=== PATIENT | female | born 1950 | race Caucasian/White ===

== ENCOUNTER 2019-05-07 21:03 | Inpatient (IN) | payer MEDICARE ==
[~2019-05-07] VITALS: Ht 167.6 cm; Wt 61.9 kg
--- NOTE | 2019-05-07 22:19 | PDOC ---
Exam Note: Harpreet Note: Please also refer to the separate dictated note~for this date of service dictated separately. Discussed the patient with Nursing staff reviewed the chart.~Reviewed interim history and current functioning. Reviewed vital signs,~Labs/ Radiology~and current medications noted below. Continue current treatment with the changes noted in the dictated addendum note Current Medications: I have reviewed the current psychotropics carefully including drug interactions. Risk benefit ratio favors no change other than as noted in my dictated progress note. IAN SANCHEZ MD May 07, 2019 22:19
[2019-05-07 22:40] VITALS: BP 167/82
[2019-05-07] MEDS ORDERED: MAGNESIUM HYDROXIDE 2,400 MG/30 ML ORAL.SUSP. PO PRN (22:45)
[2019-05-07] MEDS ORDERED: MAG HYDROX/AL HYDROX/SIMETH 30 ML ORAL.SUSP PO PRN (22:45)
[2019-05-07] MEDS ORDERED: ACETAMINOPHEN 325 MG TABLET PO PRN (22:45)
[2019-05-07] MEDS ORDERED: METHYL SALICYLATE/MENTHOL TOPICAL OINTMENT 29GM TUBE. TP PRN (22:45)
[2019-05-08 06:18] VITALS: BP 115/65
[2019-05-08 06:56] LABS: BASO % 1 % (0-3); EOS % 0 % (0-3); HEMOGLOBIN 13.9 g/dL (12.0-15.5); LYMPH # 0.9 x10^3/uL (1.0-4.8); LYMPH % 15 % (24-48); MEAN CORPUSCULAR HEMOGLOBIN 31 pg (25-35); MEAN CORPUSCULAR HGB CONC 33 g/dL (31-37); MEAN CORPUSCULAR VOLUME 93 fL (79-100); MONO # 0.7 x10^3/uL (0.0-1.1); MONO % 11 % (0-9); NEUT # 4.6 x10^3uL (1.8-7.7); NEUT % 73 % (31-73); PLATELET COUNT 327 x10^3/uL (140-400); RED BLOOD COUNT 4.52 x10^6/uL (3.50-5.40); RED CELL DISTRIBUTION WIDTH 13.7 % (11.5-14.5); WHITE BLOOD COUNT 6.3 x10^3/uL (4.0-11.0)
[2019-05-08 07:02] LABS: ALBUMIN/GLOBULIN RATIO 1.1 (1.0-1.7); CALCIUM 9.4 mg/dL (8.5-10.1); CREATININE 0.7 mg/dL (0.6-1.0); GFR 83.7; MAGNESIUM 2.4 mg/dL (1.8-2.4); POTASSIUM 3.4 mmol/L (3.5-5.1); TOTAL BILIRUBIN 0.5 mg/dL (0.2-1.0); TOTAL PROTEIN 7.5 g/dL (6.4-8.2)
[2019-05-08] MEDS: CLOBETASOL EMOLLIENT 0.05% TOPICAL CREAM 15GM TUBE. TP SCH ×2 (10:14→20:25)
--- NOTE | 2019-05-08 10:30 | RAD ---
CT HEAD WO CONTRAST History: Change in mental status. Comparison: None. Technique: Noncontrast CT imaging was performed of the head. Exposure: One or more of the following individualized dose reduction techniques were utilized for this examination: 1. Automated exposure control 2. Adjustment of the mA and/or kV according to patient size 3. Use of iterative reconstruction technique. Findings: The inferior aspect of the posterior fossa is not included in the image. No acute infarct. No intracranial hemorrhage. No mass effect. No hydrocephalus. Extra-axial spaces are unremarkable. Imaged orbits are unremarkable. Imaged paranasal sinuses and mastoid air cells are clear. Impression: 1. No acute intracranial abnormality. Electronically signed by: Ian Gardiner DO (05/08/2019 10:27 AM) [facility]
[2019-05-08 13:29] LABS: THYROID STIM HORMONE (TSH) 2.214 uIU/mL (0.358-3.740)
[2019-05-08 16:05] VITALS: BP 147/69
[2019-05-08 19:11] LABS: THYROXINE 6.6 ug/dL (4.5-12.0)
[2019-05-08] MEDS: traZODone 50 MG TABLET. PO SCH (20:22)
[2019-05-08] MEDS ORDERED: traZODone 50 MG TABLET. PO PRN (20:30)
--- NOTE | 2019-05-08 22:06 | PDOC ---
Exam Note: Harpreet Note: Please also refer to the separate dictated note~for this date of service dictated separately.~Patient seen individually. Discussed the patient with Nursing staff reviewed the chart.~Reviewed interim history and current functioning. Reviewed vital signs,~Labs/ Radiology~and current medications noted below. Continue current treatment with the changes noted in the dictated addendum note Assessment: Vital Signs/I&O: Vital Signs Date Time Temp Pulse Resp B/P (MAP) Pulse Ox O2 Delivery O2 Flow Rate FiO2 05/08/19 16:05 97.8 95 20 147/69 (95) 97 05/07/19 22:40 Room Air I & O 05/07/19 05/07/19 05/08/19 14:59 22:59 06:59 Intake Total 0 ml Balance 0 ml Labs: Laboratory Tests Test 05/08/19 06:18 White Blood Count 6.3 x10^3/uL (4.0-11.0) Red Blood Count 4.52 x10^6/uL (3.50-5.40) Hemoglobin 13.9 g/dL (12.0-15.5) Hematocrit 42.0 % (36.0-47.0) Mean Corpuscular Volume 93 fL (79-100) Mean Corpuscular Hemoglobin 31 pg (25-35) Mean Corpuscular Hemoglobin Concent 33 g/dL (31-37) Red Cell Distribution Width 13.7 % (11.5-14.5) Platelet Count 327 x10^3/uL (140-400) Neutrophils (%) (Auto) 73 % (31-73) Lymphocytes (%) (Auto) 15 % (24-48) L Monocytes (%) (Auto) 11 % (0-9) H Eosinophils (%) (Auto) 0 % (0-3) Basophils (%) (Auto) 1 % (0-3) Neutrophils # (Auto) 4.6 x10^3uL (1.8-7.7) Lymphocytes # (Auto) 0.9 x10^3/uL (1.0-4.8) L Monocytes # (Auto) 0.7 x10^3/uL (0.0-1.1) Eosinophils # (Auto) 0.0 x10^3/uL (0.0-0.7) Basophils # (Auto) 0.0 x10^3/uL (0.0-0.2) Sodium Level 142 mmol/L (136-145) Potassium Level 3.4 mmol/L (3.5-5.1) L Chloride Level 105 mmol/L (98-107) Carbon Dioxide Level 26 mmol/L (21-32) Anion Gap 11 (6-14) Blood Urea Nitrogen 15 mg/dL (7-20) Creatinine 0.7 mg/dL (0.6-1.0) Estimated GFR (Cockcroft-Gault) 83.7 BUN/Creatinine Ratio 21 (6-20) H Glucose Level 106 mg/dL (70-99) H Calcium Level 9.4 mg/dL (8.5-10.1) Magnesium Level 2.4 mg/dL (1.8-2.4) Iron Level 91 ug/dL (50-170) Total Iron Binding Capacity 313 ug/dL (250-450) Iron Saturation 29 % (15-34) Total Bilirubin 0.5 mg/dL (0.2-1.0) Aspartate Amino Transferase (AST) 20 U/L (15-37) Alanine Aminotransferase (ALT) 23 U/L (14-59) Alkaline Phosphatase 59 U/L (46-116) Total Protein 7.5 g/dL (6.4-8.2) Albumin 4.0 g/dL (3.4-5.0) Albumin/Globulin Ratio 1.1 (1.0-1.7) Triglycerides Level 54 mg/dL (0-150) Cholesterol Level 181 mg/dL (0-200) LDL Cholesterol, Calculated 94 mg/dL (0-100) VLDL Cholesterol, Calculated 10 mg/dL (0-40) Non-HDL Cholesterol Calculated 104 mg/dL (0-129) HDL Cholesterol 77 mg/dL (40-60) H Cholesterol/HDL Ratio 2.0 25-Hydroxy Vitamin D Total 75.1 ng/mL (30-100) Thyroid Stimulating Hormone (TSH) 2.214 uIU/mL (0.358-3.740) Thyroxine (T4) 6.6 ug/dL (4.5-12.0) Total Triiodothyronine (TT3) 111 ng/dL (71-180) Treponema pallidum Antibody Nonreactive (Nonreactive) Current Medications: Meds: Current Medications Medications (Trade) Dose Ordered Sig/Ally Route PRN Reason Start Time Stop Time Status Last Admin Dose Admin Clobetasol Propionate 1 chelo BID TP 05/08/19 09:00 05/08/19 20:25 Trazodone HCl (Desyrel) 50 mg QHS PO 05/08/19 21:00 05/08/19 20:22 I have reviewed the current psychotropics carefully including drug interactions. Risk benefit ratio favors no change other than as noted in my dictated progress note. Diagnosis: Problems: (1) Anxiety disorder (2) Bipolar affective, mixed (3) Mild cognitive impairment (4) Obsessive compulsive disorder IAN SANCHEZ MD May 08, 2019 22:06
[2019-05-08 23:11] LABS: HEMOGLOBIN A1C 5.3 % (4.8-5.6)
--- NOTE | 2019-05-09 00:11 | CONS ---
DATE OF CONSULTATION: 05/08/2019 MEDICAL CONSULTATION NOTE ATTENDING PHYSICIAN: Dr. Ventura, Dr. Longoria. We are asked to see this patient for medical consultation. HISTORY OF PRESENT ILLNESS: The patient is age 68. She was sent here by court order from [place], [place]. She was removed from her apartment after an eviction notice. She is very confused, refusing to answer door. She has a couple of brothers, no other family. She has a history of dementia, bipolar disorder and obsessive compulsive disorder. Her main medical issue seems to be psoriasis. She has a significant patches of psoriatic changes in her neck, torso and extensor surfaces. She tells me that she has a wheel setter in [place], but could not give me further details. Unfortunately, she could not provide any further detail. She is pleasant but very demented. PAST MEDICAL HISTORY: Gleaned from the chart is significant for psoriasis. There is no psoriatic arthritis. She has altered mentation and bipolar disorder. She also has underlying schizoaffective disorder. CURRENT MEDICATIONS: She was not taking any psychiatric meds until she got here. She had been on various [id number] meds. ALLERGIES: She has no recorded drug allergy. SOCIAL HISTORY: She is a nonsmoker, nondrinker. FAMILY HISTORY: She is very sketchy. Both her parents are . Exact cause of is unknown. She has no family, no children. REVIEW OF SYSTEMS: Unobtainable due to the patient's dementia. PHYSICAL EXAMINATION: GENERAL: When I saw her this is a pleasant but confused female. She is in no acute distress. VITAL SIGNS: Her initial vital signs today showed a blood pressure 167/82, pulse is 22 and regular. She is afebrile. HEENT: Head is without trauma. Pupils are reactive. Sclerae nonicteric. Oropharynx is clear. NECK: Supple. No bruits. LUNGS: Otherwise clear. CARDIOVASCULAR: Showed regular heart tones. No gallops. Peripheral pulses are palpable and full. ABDOMEN: Soft, scaphoid, nontender. No organomegaly. EXTREMITIES: Show 1+ edema, nonpitting. NEUROLOGIC: Neurologic function profoundly confused. She appears a bit manic at this time. SKIN: She has redness, erythema and plaques of psoriasis surrounding her neck, torso, flank and extensor surface. LABORATORY DATA: Reviewed. Her hemoglobin is 13.9 g/dL with a white count of 6300. Electrolytes showed a sodium 142 mEq, potassium 3.4 mEq, creatinine 0.7 mg percent, nonfasting blood sugar 106 mg/dL. ASSESSMENT AND PLAN: 1. This 68-year-old female has significant schizoaffective disorder. She is unable to care for herself. She was sent here to this facility by urgent court order a petition from her most immediate family 2 brothers. 2. Psoriasis. She has been noncompliant with the meds. 3. Profound underlying dementia. RECOMMENDATIONS: 1. I recommended that 0.1% betamethasone cream. This is a class I steroid twice a day to the affected area. 2. Other home meds reviewed. 3. Diet as tolerated. 4. This patient is stable otherwise from a medical standpoint. Thank you again for asking me to see the patient for medical consultation. We shall gladly follow along during the course of her stay. WALTER LONGORIA MD DR: ROD/immanuel JOB#: [id number] / [id number]
[2019-05-09 06:30] VITALS: BP 136/73
[2019-05-09] MEDS: CLOBETASOL EMOLLIENT 0.05% TOPICAL CREAM 15GM TUBE. TP SCH ×2 (08:40→20:38)
[2019-05-09 15:32] VITALS: BP 135/71
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
[2019-05-09] MEDS: traZODone 50 MG TABLET. PO SCH (20:37)
[2019-05-09] MEDS: risperiDONE 0.25 MG TABLET. PO SCH (20:37)
--- NOTE | 2019-05-09 22:09 | PDOC ---
Exam Note: Harpreet Note: Please also refer to the separate dictated note~for this date of service dictated separately.~Patient seen individually. Discussed the patient with Nursing staff reviewed the chart.~Reviewed interim history and current functioning. Reviewed vital signs,~Labs/ Radiology~and current medications noted below. Continue current treatment with the changes noted in the dictated addendum note Assessment: Vital Signs/I&O: Vital Signs Date Time Temp Pulse Resp B/P (MAP) Pulse Ox O2 Delivery O2 Flow Rate FiO2 05/09/19 15:32 98.2 89 18 135/71 (92) 94 05/07/19 22:40 Room Air I & O 05/08/19 05/08/19 05/09/19 14:59 22:59 06:59 Intake Total 600 ml 240 ml 100 ml Balance 600 ml 240 ml 100 ml Current Medications: Meds: Current Medications Medications (Trade) Dose Ordered Sig/Ally Route PRN Reason Start Time Stop Time Status Last Admin Dose Admin Risperidone (RisperDAL) 0.25 mg QHS PO 05/09/19 21:00 05/09/19 20:37 I have reviewed the current psychotropics carefully including drug interactions. Risk benefit ratio favors no change other than as noted in my dictated progress note. Diagnosis: Problems: (1) Anxiety disorder (2) Bipolar affective, mixed (3) Mild cognitive impairment (4) Obsessive compulsive disorder IAN SANCHEZ MD May 09, 2019 22:09
[2019-05-10 06:01] VITALS: BP 108/58
[2019-05-10] MEDS: CLOBETASOL EMOLLIENT 0.05% TOPICAL CREAM 15GM TUBE. TP SCH ×2 (08:04→20:47)
[2019-05-10 16:17] VITALS: BP 113/56
[2019-05-10] MEDS: risperiDONE 0.25 MG TABLET. PO SCH (20:28)
[2019-05-10] MEDS: traZODone 50 MG TABLET. PO SCH (20:28)
--- NOTE | 2019-05-10 22:20 | PDOC ---
Exam Note: Harpreet Note: Please also refer to the separate dictated note~for this date of service dictated separately.~Patient seen individually. Discussed the patient with Nursing staff reviewed the chart.~Reviewed interim history and current functioning. Reviewed vital signs,~Labs/ Radiology~and current medications noted below. Continue current treatment with the changes noted in the dictated addendum note Assessment: Vital Signs/I&O: Vital Signs Date Time Temp Pulse Resp B/P (MAP) Pulse Ox O2 Delivery O2 Flow Rate FiO2 05/10/19 16:17 97.2 86 20 113/56 (75) 98 Room Air I & O 05/09/19 05/09/19 05/10/19 15:00 23:00 07:00 Intake Total 720 ml 240 ml Balance 720 ml 240 ml Current Medications: I have reviewed the current psychotropics carefully including drug interactions. Risk benefit ratio favors no change other than as noted in my dictated progress note. Diagnosis: Problems: (1) Anxiety disorder (2) Bipolar affective, mixed (3) Mild cognitive impairment (4) Obsessive compulsive disorder IAN SANCHEZ MD May 10, 2019 22:20
[2019-05-11 06:07] VITALS: BP 94/61
[2019-05-11] MEDS: CLOBETASOL EMOLLIENT 0.05% TOPICAL CREAM 15GM TUBE. TP SCH ×2 (08:14→19:49)
--- NOTE | 2019-05-11 15:19 | PN ---
DATE: 05/09/2019 This late entry 05/09 covers the elements not covered in my initial note. SUBJECTIVE: I met with the patient at length in her room in evening of 05/09. The patient slept 5-1/2 hours previous night. The patient remains hypomanic, hyperverbal, compliant with medications, constantly moving in and out of the dayroom, somewhat paranoid, dismissive. REVIEW OF SYSTEMS: No CV, , pulmonary, eye, ENT system symptoms on review. MENTAL STATUS EXAM: Oriented to herself and situation. Speech is coherent, rapid at times. Abstraction fair. Computation impaired. Language function intact. Attention span short. Mood and affect labile. Grandiose distracted easily. No suicidal or homicidal ideation. LABORATORY DATA: Reviewed. IMPRESSION: Bipolar 1 disorder, mixed with psychotic features; mild cognitive impairment; anxiety disorder, unspecified. PLAN: Start Risperdal 0.25 mg p.o. at bedtime as an atypical antipsychotic mood stabilizer. Consider Depakote. Gather further historical information. Rest unchanged for now. MAN Isidra SANCHEZ MD DR: LEOBARDO/immanuel JOB#: [id number] / [id number]
[2019-05-11 16:20] VITALS: BP 114/65
[2019-05-11] MEDS: traZODone 50 MG TABLET. PO SCH (19:49)
[2019-05-11] MEDS: risperiDONE 0.5 MG TABLET. PO SCH (19:50)
--- NOTE | 2019-05-11 22:16 | PDOC ---
Exam Note: Harpreet Note: Please also refer to the separate dictated note~for this date of service dictated separately.~Patient seen individually. Discussed the patient with Nursing staff reviewed the chart.~Reviewed interim history and current functioning. Reviewed vital signs,~Labs/ Radiology~and current medications noted below. Continue current treatment with the changes noted in the dictated addendum note Assessment: Vital Signs/I&O: Vital Signs Date Time Temp Pulse Resp B/P (MAP) Pulse Ox O2 Delivery O2 Flow Rate FiO2 05/11/19 16:20 98.0 84 16 114/65 (81) 98 05/11/19 06:07 Room Air I & O 05/10/19 05/10/19 05/11/19 14:59 22:59 06:59 Intake Total 240 ml 240 ml 120 ml Balance 240 ml 240 ml 120 ml Current Medications: Meds: Current Medications Medications (Trade) Dose Ordered Sig/Ally Route PRN Reason Start Time Stop Time Status Last Admin Dose Admin Risperidone (RisperDAL) 0.5 mg QHS PO 05/11/19 21:00 05/11/19 19:50 I have reviewed the current psychotropics carefully including drug interactions. Risk benefit ratio favors no change other than as noted in my dictated progress note. Diagnosis: Problems: (1) Anxiety disorder (2) Bipolar affective, mixed (3) Mild cognitive impairment (4) Obsessive compulsive disorder IAN SANCHEZ MD May 11, 2019 22:16
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
[2019-05-12 06:11] VITALS: BP 100/57
[2019-05-12] MEDS: CLOBETASOL EMOLLIENT 0.05% TOPICAL CREAM 15GM TUBE. TP SCH ×2 (07:38→20:13)
[2019-05-12 15:48] VITALS: BP 135/68
[2019-05-12] MEDS: DIVALPROEX 125 MG CAP.SPRINK PO SCH (18:45)
[2019-05-12] MEDS: traZODone 50 MG TABLET. PO SCH (20:13)
[2019-05-12] MEDS: risperiDONE 0.5 MG TABLET. PO SCH (20:13)
--- NOTE | 2019-05-12 22:51 | PDOC ---
Exam Note: Harpreet Note: Please also refer to the separate dictated note~for this date of service dictated separately.~Patient seen individually. Discussed the patient with Nursing staff reviewed the chart.~Reviewed interim history and current functioning. Reviewed vital signs,~Labs/ Radiology~and current medications noted below. Continue current treatment with the changes noted in the dictated addendum note Assessment: Vital Signs/I&O: Vital Signs Date Time Temp Pulse Resp B/P (MAP) Pulse Ox O2 Delivery O2 Flow Rate FiO2 05/12/19 15:48 97.6 104 16 135/68 (90) 96 05/11/19 06:07 Room Air I & O 05/11/19 05/11/19 05/12/19 15:00 23:00 07:00 Intake Total 480 ml 480 ml Balance 480 ml 480 ml Current Medications: I have reviewed the current psychotropics carefully including drug interactions. Risk benefit ratio favors no change other than as noted in my dictated progress note. Diagnosis: Problems: (1) Anxiety disorder (2) Bipolar affective, mixed (3) Mild cognitive impairment (4) Obsessive compulsive disorder IAN SANCHEZ MD May 12, 2019 22:51
[2019-05-13 06:01] VITALS: BP 121/68
[2019-05-13 06:55] LABS: BILIRUBIN,URINE NEG (NEG); CLARITY,URINE CLOUDY; COLOR,URINE YELLOW; GLUCOSE,URINE NEG (NEG); NITRITE,URINE NEG (NEG); UROBILINOGEN,URINE 0.2 mg/dL (0.2 mg/dL)
[2019-05-13] MEDS: DIVALPROEX 125 MG CAP.SPRINK PO SCH ×2 (07:43→17:06)
[2019-05-13 08:05] LABS: BASO % 1 % (0-3); EOS # 0.1 x10^3/uL (0.0-0.7); EOS % 2 % (0-3); HEMATOCRIT 39.6 % (36.0-47.0); LYMPH # 0.6 x10^3/uL (1.0-4.8); LYMPH % 13 % (24-48); MEAN CORPUSCULAR HEMOGLOBIN 31 pg (25-35); MEAN CORPUSCULAR HGB CONC 33 g/dL (31-37); MEAN CORPUSCULAR VOLUME 93 fL (79-100); MONO # 0.5 x10^3/uL (0.0-1.1); MONO % 11 % (0-9); NEUT # 3.1 x10^3uL (1.8-7.7); NEUT % 73 % (31-73); PLATELET COUNT 309 x10^3/uL (140-400); RED BLOOD COUNT 4.24 x10^6/uL (3.50-5.40); RED CELL DISTRIBUTION WIDTH 13.9 % (11.5-14.5); WHITE BLOOD COUNT 4.2 x10^3/uL (4.0-11.0)
[2019-05-13 08:12] LABS: ALBUMIN 3.6 g/dL (3.4-5.0); ALBUMIN/GLOBULIN RATIO 1.1 (1.0-1.7); CALCIUM 9.2 mg/dL (8.5-10.1); CREATININE 0.6 mg/dL (0.6-1.0); GFR 99.7; POTASSIUM 3.6 mmol/L (3.5-5.1); TOTAL BILIRUBIN 0.3 mg/dL (0.2-1.0); TOTAL PROTEIN 6.8 g/dL (6.4-8.2)
[2019-05-13] MEDS: CLOBETASOL EMOLLIENT 0.05% TOPICAL CREAM 15GM TUBE. TP SCH ×2 (10:49→19:56)
[2019-05-13] MEDS: LACTOBACILLUS RHAMNOSUS GG 1 CAPSULE. PO SCH ×2 (12:07→19:56)
[2019-05-13] MEDS: levoFLOXacin 250 MG TABLET PO SCH (12:07)
[2019-05-13 16:15] VITALS: BP 129/78
[2019-05-13] MEDS: risperiDONE 0.5 MG TABLET. PO SCH (19:56)
[2019-05-13] MEDS: traZODone 50 MG TABLET. PO SCH (19:56)
--- NOTE | 2019-05-13 22:06 | PDOC ---
Exam Note: Harpreet Note: Please also refer to the separate dictated note~for this date of service dictated separately.~Patient seen individually. Discussed the patient with Nursing staff reviewed the chart.~Reviewed interim history and current functioning. Reviewed vital signs,~Labs/ Radiology~and current medications noted below. Continue current treatment with the changes noted in the dictated addendum note Assessment: Vital Signs/I&O: Vital Signs Date Time Temp Pulse Resp B/P (MAP) Pulse Ox O2 Delivery O2 Flow Rate FiO2 05/13/19 16:15 98.2 102 22 129/78 (95) 97 Room Air I & O 05/12/19 05/12/19 05/13/19 15:00 23:00 07:00 Intake Total 660 ml 360 ml Balance 660 ml 360 ml Labs: Laboratory Tests Test 05/13/19 06:15 05/13/19 07:30 Urine Collection Type Unknown Urine Color Yellow Urine Clarity Cloudy Urine pH 8.5 Urine Specific [place] 1.020 Urine Protein Trace (NEG-TRACE) Urine Glucose (UA) Neg mg/dL (NEG) Urine Ketones (Stick) Neg mg/dL (NEG) Urine Blood Neg (NEG) Urine Nitrite Neg (NEG) Urine Bilirubin Neg (NEG) Urine Urobilinogen Dipstick 0.2 mg/dL (0.2 mg/dL) Urine Leukocyte Esterase Trace (NEG) White Blood Count 4.2 x10^3/uL (4.0-11.0) Red Blood Count 4.24 x10^6/uL (3.50-5.40) Hemoglobin 13.0 g/dL (12.0-15.5) Hematocrit 39.6 % (36.0-47.0) Mean Corpuscular Volume 93 fL (79-100) Mean Corpuscular Hemoglobin 31 pg (25-35) Mean Corpuscular Hemoglobin Concent 33 g/dL (31-37) Red Cell Distribution Width 13.9 % (11.5-14.5) Platelet Count 309 x10^3/uL (140-400) Neutrophils (%) (Auto) 73 % (31-73) Lymphocytes (%) (Auto) 13 % (24-48) L Monocytes (%) (Auto) 11 % (0-9) H Eosinophils (%) (Auto) 2 % (0-3) Basophils (%) (Auto) 1 % (0-3) Neutrophils # (Auto) 3.1 x10^3uL (1.8-7.7) Lymphocytes # (Auto) 0.6 x10^3/uL (1.0-4.8) L Monocytes # (Auto) 0.5 x10^3/uL (0.0-1.1) Eosinophils # (Auto) 0.1 x10^3/uL (0.0-0.7) Basophils # (Auto) 0.0 x10^3/uL (0.0-0.2) Sodium Level 142 mmol/L (136-145) Potassium Level 3.6 mmol/L (3.5-5.1) Chloride Level 106 mmol/L (98-107) Carbon Dioxide Level 29 mmol/L (21-32) Anion Gap 7 (6-14) Blood Urea Nitrogen 20 mg/dL (7-20) Creatinine 0.6 mg/dL (0.6-1.0) Estimated GFR (Cockcroft-Gault) 99.7 BUN/Creatinine Ratio 33 (6-20) H Glucose Level 101 mg/dL (70-99) H Calcium Level 9.2 mg/dL (8.5-10.1) Total Bilirubin 0.3 mg/dL (0.2-1.0) Aspartate Amino Transferase (AST) 15 U/L (15-37) Alanine Aminotransferase (ALT) 26 U/L (14-59) Alkaline Phosphatase 58 U/L (46-116) Total Protein 6.8 g/dL (6.4-8.2) Albumin 3.6 g/dL (3.4-5.0) Albumin/Globulin Ratio 1.1 (1.0-1.7) Current Medications: Meds: Current Medications Medications (Trade) Dose Ordered Sig/Ally Route PRN Reason Start Time Stop Time Status Last Admin Dose Admin Levofloxacin (Levaquin) 250 mg DAILY PO 05/13/19 09:00 05/18/19 01:00 05/13/19 12:07 Lactobacillus Rhamnosus (Culturelle) 1 cap BID PO 05/13/19 11:00 05/13/19 19:56 I have reviewed the current psychotropics carefully including drug interactions. Risk benefit ratio favors no change other than as noted in my dictated progress note. Diagnosis: Problems: (1) Anxiety disorder (2) Bipolar affective, mixed (3) Mild cognitive impairment (4) Obsessive compulsive disorder IAN SANCHEZ MD May 13, 2019 22:05
--- NOTE | 2019-05-14 05:14 | PN ---
DATE: 05/11/2019 PSYCHIATRIC PROGRESS NOTE This late entry 05/11/2019 covers elements not covered in my initial note. SUBJECTIVE: I met with the patient in the evening of 05/11/2019. The patient slept 6-1/2 hours previous night. She remains hyperverbal, somewhat grandiose, distractible, at times paranoid. REVIEW OF SYSTEMS: No CV, , pulmonary, eye, ENT system symptoms on review. MENTAL STATUS EXAM: Oriented to herself and situation. Speech is coherent, rapid. Abstraction fair, computation impaired, language function intact, attention span short. Mood and affect somewhat labile and grandiose. LABORATORY DATA: Reviewed. IMPRESSION: Unchanged from initial note. PLAN: Increase Risperdal from 0.25 mg at bedtime to 0.5 mg at bedtime. Rest unchanged for now. MAN Isidra SANCHEZ MD DR: LEOBARDO/immanuel JOB#: [id number] / [id number]
[2019-05-14 05:43] VITALS: BP 132/75
--- NOTE | 2019-05-14 05:51 | PN ---
DATE: 05/12/2019 PSYCHIATRIC PROGRESS NOTE This is a late entry 05/12/2019 covers elements not covered in my initial note. SUBJECTIVE: I met with the patient at length in her room. She slept 5-1/2 hours. She has been manic, euphoric, compliant with medications. She is compliant with psoriasis treatment, wears multiple layers of clothing, part of her socially inappropriate behaviors. She is social with one of the other patients on the unit, remains hyperverbal and manic. REVIEW OF SYSTEMS: No CV, , pulmonary, eye, ENT system symptoms on review. MENTAL STATUS EXAM: Oriented to herself and situation. Speech is coherent, rapid. Abstraction fair, computation impaired, language function intact, attention span short. Mood and affect remain somewhat grandiose, labile. LABORATORY DATA: Reviewed. IMPRESSION: Unchanged from initial note. PLAN: No change from initial note. MAN Isidra SANCHEZ MD DR: LEOBARDO/immanuel JOB#: [id number] / [id number]
[2019-05-14] MEDS: DIVALPROEX 125 MG CAP.SPRINK PO SCH ×2 (08:15→17:08)
[2019-05-14] MEDS: levoFLOXacin 250 MG TABLET PO SCH (08:15)
[2019-05-14] MEDS: LACTOBACILLUS RHAMNOSUS GG 1 CAPSULE. PO SCH ×2 (08:16→19:51)
[2019-05-14] MEDS: CLOBETASOL EMOLLIENT 0.05% TOPICAL CREAM 15GM TUBE. TP SCH ×2 (09:00→20:00)
--- NOTE | 2019-05-14 11:35 | PN ---
DATE: 05/13/2019 This is a late entry 05/13/2019 covers elements not covered in my initial note. SUBJECTIVE: I met with the patient in the evening of 05/13/2019. The patient slept 6-1/4 hours previous night. The patient has been hyperverbal, wearing multiple layers of clothing typical for her, wearing a blanket as a skirt, somewhat socially bizarre. She has been writing excessively with some hypergraphia evident. She remains on Levaquin for possible UTI. REVIEW OF SYSTEMS: No CV, , pulmonary, eye, ENT system symptoms on review. MENTAL STATUS EXAM: Oriented to herself and situation. Speech is coherent, rapid at times. Abstraction fair, computation impaired, language function intact, attention span short. Mood and affect remain somewhat labile. LABORATORY DATA: Reviewed. IMPRESSION: Schizoaffective disorder, bipolar type, mixed with psychotic features; anxiety disorder, unspecified. Rest unchanged. PLAN: Continue current psychotropics. Depakote is being adjusted. She remains on Risperdal and trazodone and treat the UTI as indicated. IAN SANCHEZ MD DR: LEOBARDO/immanuel JOB#: [id number] / [id number]
[2019-05-14 15:39] VITALS: BP 129/71
[2019-05-14] MEDS: risperiDONE 0.5 MG TABLET. PO SCH (19:51)
[2019-05-14] MEDS: traZODone 50 MG TABLET. PO SCH (19:51)
--- NOTE | 2019-05-14 21:05 | PDOC ---
Exam Note: Harpreet Note: Please also refer to the separate dictated note~for this date of service dictated separately.~Patient seen individually. Discussed the patient with Nursing staff reviewed the chart.~Reviewed interim history and current functioning. Reviewed vital signs,~Labs/ Radiology~and current medications noted below. Continue current treatment with the changes noted in the dictated addendum note Assessment: Vital Signs/I&O: Vital Signs Date Time Temp Pulse Resp B/P (MAP) Pulse Ox O2 Delivery O2 Flow Rate FiO2 05/14/19 15:39 97.7 104 16 129/71 (90) 96 05/13/19 16:15 Room Air I & O 05/13/19 05/13/19 05/14/19 15:00 23:00 07:00 Intake Total 480 ml 360 ml Balance 480 ml 360 ml Current Medications: I have reviewed the current psychotropics carefully including drug interactions. Risk benefit ratio favors no change other than as noted in my dictated progress note. Diagnosis: Problems: (1) Anxiety disorder (2) Bipolar affective, mixed (3) Mild cognitive impairment (4) Obsessive compulsive disorder IAN SANCHEZ MD May 14, 2019 21:05
[2019-05-15 05:21] VITALS: BP 115/75
[2019-05-15 07:22] LABS: BASO % 1 % (0-3); EOS # 0.2 x10^3/uL (0.0-0.7); EOS % 4 % (0-3); HEMATOCRIT 37.9 % (36.0-47.0); HEMOGLOBIN 12.6 g/dL (12.0-15.5); LYMPH % 24 % (24-48); MEAN CORPUSCULAR HEMOGLOBIN 31 pg (25-35); MEAN CORPUSCULAR HGB CONC 33 g/dL (31-37); MEAN CORPUSCULAR VOLUME 92 fL (79-100); MONO # 0.5 x10^3/uL (0.0-1.1); MONO % 11 % (0-9); NEUT # 2.4 x10^3uL (1.8-7.7); NEUT % 60 % (31-73); PLATELET COUNT 307 x10^3/uL (140-400)
[2019-05-15 07:35] LABS: ALBUMIN 3.3 g/dL (3.4-5.0); ALK PHOS 57 U/L (46-116); ALT (SGPT) 29 U/L (14-59); ANION GAP 7 (6-14); AST (SGOT) 18 U/L (15-37); BLOOD UREA NITROGEN 19 mg/dL (7-20); BUN/CREATININE RATIO 32 (6-20); CARBON DIOXIDE 30 mmol/L (21-32); CHLORIDE 108 mmol/L (98-107); CREATININE 0.6 mg/dL (0.6-1.0); GFR 99.7; GLUCOSE 94 mg/dL (70-99); POTASSIUM 3.7 mmol/L (3.5-5.1); SODIUM 145 mmol/L (136-145); TOTAL BILIRUBIN 0.4 mg/dL (0.2-1.0); TOTAL PROTEIN 6.6 g/dL (6.4-8.2)
[2019-05-15 07:46] LABS: VAL ACID 19 mcg/mL (50-100)
[2019-05-15] MEDS: levoFLOXacin 250 MG TABLET PO SCH (07:50)
[2019-05-15] MEDS: LACTOBACILLUS RHAMNOSUS GG 1 CAPSULE. PO SCH ×2 (07:50→19:29)
[2019-05-15] MEDS: DIVALPROEX 125 MG CAP.SPRINK PO SCH (07:50)
[2019-05-15] MEDS: CLOBETASOL EMOLLIENT 0.05% TOPICAL CREAM 15GM TUBE. TP SCH ×2 (07:53→19:29)
--- NOTE | 2019-05-15 09:36 | PN ---
DATE: 05/14/2019 PSYCHIATRIC PROGRESS NOTE This late entry, 05/14/2019, covers elements not covered in my initial note. SUBJECTIVE: I met with the patient in the evening of 05/14/2019. The patient slept 5-3/4 hours previous night. She remains hyperverbal, somewhat manic and grandiose, wears multiple layers of clothing, somewhat inappropriate to the temperature. UA is negative. Compliant with medications. REVIEW OF SYSTEMS: No CV, , pulmonary, eye, ENT system symptoms on review. MENTAL STATUS EXAM: Oriented to herself and situation. Speech is coherent, rapid at times. Abstraction fair, computation impaired, language function intact, attention span short. Mood and affect remain somewhat grandiose, labile and she is quite distractable. LABORATORY DATA: Reviewed. IMPRESSION: Bipolar 1 disorder, mixed with psychotic features versus schizoaffective disorder, bipolar type, mixed with psychotic features. Rest unchanged including mild cognitive impairment. PLAN: Continue current psychotropics. UTI was treated and Levaquin discontinued. Urine culture is negative. Rest unchanged from initial note. MAN Isidra SANCHEZ MD DR: LEOBARDO/immanuel JOB#: [id number] / [id number]
[2019-05-15 16:16] VITALS: BP 130/91
[2019-05-15] MEDS ORDERED: DIVALPROEX 125 MG CAP.SPRINK PO ONE (17:15)
[2019-05-15] MEDS: risperiDONE 0.5 MG TABLET. PO SCH (19:29)
[2019-05-15] MEDS: traZODone 50 MG TABLET. PO SCH (19:29)
--- NOTE | 2019-05-15 22:12 | PDOC ---
Exam Note: Harpreet Note: Please also refer to the separate dictated note~for this date of service dictated separately.~Patient seen individually. Discussed the patient with Nursing staff reviewed the chart.~Reviewed interim history and current functioning. Reviewed vital signs,~Labs/ Radiology~and current medications noted below. Continue current treatment with the changes noted in the dictated addendum note Assessment: Vital Signs/I&O: Vital Signs Date Time Temp Pulse Resp B/P (MAP) Pulse Ox O2 Delivery O2 Flow Rate FiO2 05/15/19 16:16 97.5 98 20 130/91 (104) 95 05/15/19 05:21 Room Air I & O 05/14/19 05/14/19 05/15/19 14:59 22:59 06:59 Intake Total 720 ml 300 ml Balance 720 ml 300 ml Labs: Laboratory Tests Test 05/15/19 06:48 White Blood Count 4.0 x10^3/uL (4.0-11.0) Red Blood Count 4.10 x10^6/uL (3.50-5.40) Hemoglobin 12.6 g/dL (12.0-15.5) Hematocrit 37.9 % (36.0-47.0) Mean Corpuscular Volume 92 fL (79-100) Mean Corpuscular Hemoglobin 31 pg (25-35) Mean Corpuscular Hemoglobin Concent 33 g/dL (31-37) Red Cell Distribution Width 14.0 % (11.5-14.5) Platelet Count 307 x10^3/uL (140-400) Neutrophils (%) (Auto) 60 % (31-73) Lymphocytes (%) (Auto) 24 % (24-48) Monocytes (%) (Auto) 11 % (0-9) H Eosinophils (%) (Auto) 4 % (0-3) H Basophils (%) (Auto) 1 % (0-3) Neutrophils # (Auto) 2.4 x10^3uL (1.8-7.7) Lymphocytes # (Auto) 1.0 x10^3/uL (1.0-4.8) Monocytes # (Auto) 0.5 x10^3/uL (0.0-1.1) Eosinophils # (Auto) 0.2 x10^3/uL (0.0-0.7) Basophils # (Auto) 0.0 x10^3/uL (0.0-0.2) Sodium Level 145 mmol/L (136-145) Potassium Level 3.7 mmol/L (3.5-5.1) Chloride Level 108 mmol/L (98-107) H Carbon Dioxide Level 30 mmol/L (21-32) Anion Gap 7 (6-14) Blood Urea Nitrogen 19 mg/dL (7-20) Creatinine 0.6 mg/dL (0.6-1.0) Estimated GFR (Cockcroft-Gault) 99.7 BUN/Creatinine Ratio 32 (6-20) H Glucose Level 94 mg/dL (70-99) Calcium Level 9.0 mg/dL (8.5-10.1) Total Bilirubin 0.4 mg/dL (0.2-1.0) Aspartate Amino Transferase (AST) 18 U/L (15-37) Alanine Aminotransferase (ALT) 29 U/L (14-59) Alkaline Phosphatase 57 U/L (46-116) Total Protein 6.6 g/dL (6.4-8.2) Albumin 3.3 g/dL (3.4-5.0) L Albumin/Globulin Ratio 1.0 (1.0-1.7) Valproic Acid Level 19 mcg/mL (50-100) L Valproic Acid Last Dose Date 05/14/19 Valproic Acid Last Dose Time 1700 Current Medications: Meds: Current Medications Medications (Trade) Dose Ordered Sig/Ally Route PRN Reason Start Time Stop Time Status Last Admin Dose Admin Divalproex Sodium (Depakote Sprinkles) 125 mg ONCE ONCE PO 05/15/19 17:15 05/15/19 17:16 DC 05/15/19 17:24 I have reviewed the current psychotropics carefully including drug interactions. Risk benefit ratio favors no change other than as noted in my dictated progress note. Diagnosis: Problems: (1) Anxiety disorder (2) Bipolar affective, mixed (3) Mild cognitive impairment (4) Obsessive compulsive disorder IAN SANCHEZ MD May 15, 2019 22:12
[2019-05-16 05:49] VITALS: BP 121/78
[2019-05-16] MEDS: LACTOBACILLUS RHAMNOSUS GG 1 CAPSULE. PO SCH ×2 (08:14→20:29)
[2019-05-16] MEDS: CLOBETASOL EMOLLIENT 0.05% TOPICAL CREAM 15GM TUBE. TP SCH ×2 (08:14→23:43)
[2019-05-16] MEDS: levoFLOXacin 250 MG TABLET PO SCH (08:14)
[2019-05-16] MEDS: DIVALPROEX 125 MG CAP.SPRINK PO SCH ×2 (08:17→15:49)
[2019-05-16 15:55] VITALS: BP 109/61
[2019-05-16] MEDS: traZODone 50 MG TABLET. PO SCH (20:29)
[2019-05-16] MEDS: risperiDONE 0.5 MG TABLET. PO SCH (20:29)
[2019-05-16] MEDS ORDERED: AMOXICILLIN 250 MG CAPSULE PO SCH (21:00)
--- NOTE | 2019-05-16 22:23 | PDOC ---
Exam Note: Harpreet Note: Please also refer to the separate dictated note~for this date of service dictated separately.~Patient seen individually. Discussed the patient with Nursing staff reviewed the chart.~Reviewed interim history and current functioning. Reviewed vital signs,~Labs/ Radiology~and current medications noted below. Continue current treatment with the changes noted in the dictated addendum note Assessment: Vital Signs/I&O: Vital Signs Date Time Temp Pulse Resp B/P (MAP) Pulse Ox O2 Delivery O2 Flow Rate FiO2 05/16/19 15:55 97.3 100 20 109/61 (77) 97 05/15/19 05:21 Room Air I & O 05/15/19 05/15/19 05/16/19 14:59 22:59 06:59 Intake Total 960 ml 730 ml Balance 960 ml 730 ml Current Medications: Meds: Current Medications Medications (Trade) Dose Ordered Sig/Ally Route PRN Reason Start Time Stop Time Status Last Admin Dose Admin Divalproex Sodium (Depakote Sprinkles) 250 mg BID@0900,1700 PO 05/16/19 09:00 05/16/19 15:49 Amoxicillin (Amoxil) 500 mg [id number] PO 05/16/19 21:00 05/23/19 20:59 05/16/19 21:26 I have reviewed the current psychotropics carefully including drug interactions. Risk benefit ratio favors no change other than as noted in my dictated progress note. Diagnosis: Problems: (1) Anxiety disorder (2) Bipolar affective, mixed (3) Mild cognitive impairment (4) Obsessive compulsive disorder IAN SANCHEZ MD May 16, 2019 22:23
--- NOTE | 2019-05-16 23:09 | PN ---
DATE: 05/15/2019 PSYCHIATRIC PROGRESS NOTE This is a late entry 05/15/2019 covers elements not covered in my initial note. SUBJECTIVE: I met with the patient evening of 05/15/2019. The patient slept 8 hours previous night. Overall, she is doing better, less anxious, less labile, compliant with her medication. She remains hypomanic and hyperverbal. Valproic acid level is 19 on Depakote Sprinkles 125 mg twice a day. I met with the patient at some length individually in her room. REVIEW OF SYSTEMS: No CV, , pulmonary, eye, ENT system symptoms on review. MENTAL STATUS EXAM: Oriented to herself and situation. Speech coherent, rapid. Abstraction fair, computation impaired, language function intact, attention span short. Mood and affect remains somewhat hypomanic, grandiose at times. LABORATORY DATA: Reviewed. IMPRESSION: Bipolar 1 disorder, mixed with psychotic features; personality disorder, unspecified; anxiety disorder, unspecified; mild cognitive impairment. PLAN: Increase Depakote Sprinkles to 50 mg twice a day. Check CBC, CMP, valproic acid level in 3 days. Rest unchanged for now. MAN Isidra SANCHEZ MD DR: LEOBARDO/immanuel JOB#: [id number] / [id number]
[2019-05-17 06:35] VITALS: BP 133/72
[2019-05-17] MEDS: DIVALPROEX 125 MG CAP.SPRINK PO SCH ×2 (08:02→17:16)
[2019-05-17] MEDS: LACTOBACILLUS RHAMNOSUS GG 1 CAPSULE. PO SCH ×2 (08:02→20:11)
[2019-05-17] MEDS: levoFLOXacin 250 MG TABLET PO SCH (08:02)
[2019-05-17] MEDS: CLOBETASOL EMOLLIENT 0.05% TOPICAL CREAM 15GM TUBE. TP SCH ×2 (08:03→20:11)
[2019-05-17 16:35] VITALS: BP 112/64
[2019-05-17] MEDS: traZODone 50 MG TABLET. PO SCH (20:11)
[2019-05-17] MEDS: risperiDONE 0.5 MG TABLET. PO SCH (20:11)
--- NOTE | 2019-05-17 22:39 | PDOC ---
Exam Note: Harpreet Note: Please also refer to the separate dictated note~for this date of service dictated separately.~Patient seen individually. Discussed the patient with Nursing staff reviewed the chart.~Reviewed interim history and current functioning. Reviewed vital signs,~Labs/ Radiology~and current medications noted below. Continue current treatment with the changes noted in the dictated addendum note Assessment: Vital Signs/I&O: Vital Signs Date Time Temp Pulse Resp B/P (MAP) Pulse Ox O2 Delivery O2 Flow Rate FiO2 05/17/19 16:35 97.8 96 20 112/64 (80) 97 Room Air I & O 05/16/19 05/16/19 05/17/19 14:59 22:59 06:59 Intake Total 600 ml 240 ml Balance 600 ml 240 ml Current Medications: I have reviewed the current psychotropics carefully including drug interactions. Risk benefit ratio favors no change other than as noted in my dictated progress note. Diagnosis: Problems: (1) Anxiety disorder (2) Bipolar affective, mixed (3) Mild cognitive impairment (4) Obsessive compulsive disorder IAN SANCHZE MD May 17, 2019 22:39
--- NOTE | 2019-05-18 00:09 | PN ---
DATE: 05/16/2019 PSYCHIATRIC PROGRESS NOTE This late entry 05/16/2019 covers elements not covered in my initial note. SUBJECTIVE: I met with the patient in the evening of 05/16/2019. The patient slept 6-3/4 hours previous night. She remains somewhat hyperverbal with poor social skills, mood lability, anxious, dresses herself in multiple layers. REVIEW OF SYSTEMS: No CV, , pulmonary, eye, ENT system symptoms on review. Reliability varies. I met with her in her room. MENTAL STATUS EXAM: Oriented to herself and situation. Speech is coherent, rapid. Abstraction fair, computation impaired, language function intact, attention span short. Mood and affect remain somewhat anxious, labile. LABORATORY DATA: Reviewed. IMPRESSION: Unchanged from initial note. PLAN: No change from initial note. We will adjust the Depakote gradually to reach therapeutic level. Next set of labs to be done on 05/18/2019. Rest unchanged. IAN SANCHEZ MD DR: LEOBARDO/immanuel JOB#: [id number] / [id number]
[2019-05-18 06:25] VITALS: BP 142/73
[2019-05-18 07:34] LABS: BASO % 1 % (0-3); EOS % 1 % (0-3); HEMATOCRIT 38.7 % (36.0-47.0); HEMOGLOBIN 12.8 g/dL (12.0-15.5); LYMPH # 0.8 x10^3/uL (1.0-4.8); LYMPH % 24 % (24-48); MEAN CORPUSCULAR HEMOGLOBIN 31 pg (25-35); MEAN CORPUSCULAR HGB CONC 33 g/dL (31-37); MEAN CORPUSCULAR VOLUME 93 fL (79-100); MONO # 0.4 x10^3/uL (0.0-1.1); MONO % 12 % (0-9); NEUT # 2.1 x10^3uL (1.8-7.7); NEUT % 62 % (31-73); PLATELET COUNT 297 x10^3/uL (140-400); RED BLOOD COUNT 4.14 x10^6/uL (3.50-5.40); RED CELL DISTRIBUTION WIDTH 14.4 % (11.5-14.5); WHITE BLOOD COUNT 3.4 x10^3/uL (4.0-11.0)
[2019-05-18 07:44] LABS: ALBUMIN 3.3 g/dL (3.4-5.0); ALK PHOS 53 U/L (46-116); ALT (SGPT) 28 U/L (14-59); ANION GAP 8 (6-14); AST (SGOT) 15 U/L (15-37); BLOOD UREA NITROGEN 22 mg/dL (7-20); BUN/CREATININE RATIO 37 (6-20); CALCIUM 8.9 mg/dL (8.5-10.1); CARBON DIOXIDE 29 mmol/L (21-32); CHLORIDE 106 mmol/L (98-107); CREATININE 0.6 mg/dL (0.6-1.0); GFR 99.7; GLUCOSE 95 mg/dL (70-99); POTASSIUM 3.8 mmol/L (3.5-5.1); SODIUM 143 mmol/L (136-145); TOTAL BILIRUBIN 0.3 mg/dL (0.2-1.0); TOTAL PROTEIN 6.7 g/dL (6.4-8.2)
[2019-05-18 07:46] LABS: VAL ACID 33 mcg/mL (50-100)
[2019-05-18] MEDS: DIVALPROEX 125 MG CAP.SPRINK PO SCH (08:23)
[2019-05-18] MEDS: LACTOBACILLUS RHAMNOSUS GG 1 CAPSULE. PO SCH ×2 (08:23→20:00)
[2019-05-18] MEDS: CLOBETASOL EMOLLIENT 0.05% TOPICAL CREAM 15GM TUBE. TP SCH ×2 (08:24→20:00)
[2019-05-18 15:56] VITALS: BP 148/79
[2019-05-18] MEDS: risperiDONE 0.5 MG TABLET. PO SCH (19:59)
[2019-05-18] MEDS: traZODone 50 MG TABLET. PO SCH (19:59)
--- NOTE | 2019-05-18 20:47 | PN ---
DATE: 05/17/2019 PSYCHIATRIC PROGRESS NOTE This is a late entry 05/17/2019, covers the elements not covered in my initial note. SUBJECTIVE: I met with the patient in the evening of 05/17/2019 and staffed a treatment team meeting with the entire team in the morning. The patient is sleeping average 6 hours, appetite 75-100% of her meals. She remains hyperverbal, has flight of ideas, rambling in her speech, but social with others. She does not attend very many groups, but when she does, she is hyper-christianity, talking about her [employer] mary. Reportedly, a guardianship hearing is being scheduled and Dr. House has done neuropsychological testing/capacity to make decisions assessment. REVIEW OF SYSTEMS: No CV, , pulmonary, eye, ENT system symptoms on review. Reliability varies. MENTAL STATUS EXAM: Oriented to herself and situation. Speech coherent, rapid at times. Abstraction fair, computation impaired, language function intact, attention span short. Mood and affect remain somewhat grandiose, labile at times. LABORATORY DATA: Reviewed. IMPRESSION: Unchanged from initial note. PLAN: No change from initial note. Maintain Risperdal at current dosage. Depakote was increased. Repeat labs and valproic acid level are due on the 05/18/2019. We will adjust further thereafter. IAN SANCHEZ MD DR: LEOBARDO/immanuel JOB#: [id number] / [id number]
--- NOTE | 2019-05-18 22:08 | PDOC ---
Exam Note: Harpreet Note: Please also refer to the separate dictated note~for this date of service dictated separately.~Patient seen individually. Discussed the patient with Nursing staff reviewed the chart.~Reviewed interim history and current functioning. Reviewed vital signs,~Labs/ Radiology~and current medications noted below. Continue current treatment with the changes noted in the dictated addendum note Assessment: Vital Signs/I&O: Vital Signs Date Time Temp Pulse Resp B/P (MAP) Pulse Ox O2 Delivery O2 Flow Rate FiO2 05/18/19 15:56 98.4 102 22 148/79 (102) 96 Room Air I & O 05/17/19 05/17/19 05/18/19 15:00 23:00 07:00 Intake Total 480 ml 480 ml Balance 480 ml 480 ml Labs: Laboratory Tests Test 05/18/19 07:08 White Blood Count 3.4 x10^3/uL (4.0-11.0) L Red Blood Count 4.14 x10^6/uL (3.50-5.40) Hemoglobin 12.8 g/dL (12.0-15.5) Hematocrit 38.7 % (36.0-47.0) Mean Corpuscular Volume 93 fL (79-100) Mean Corpuscular Hemoglobin 31 pg (25-35) Mean Corpuscular Hemoglobin Concent 33 g/dL (31-37) Red Cell Distribution Width 14.4 % (11.5-14.5) Platelet Count 297 x10^3/uL (140-400) Neutrophils (%) (Auto) 62 % (31-73) Lymphocytes (%) (Auto) 24 % (24-48) Monocytes (%) (Auto) 12 % (0-9) H Eosinophils (%) (Auto) 1 % (0-3) Basophils (%) (Auto) 1 % (0-3) Neutrophils # (Auto) 2.1 x10^3uL (1.8-7.7) Lymphocytes # (Auto) 0.8 x10^3/uL (1.0-4.8) L Monocytes # (Auto) 0.4 x10^3/uL (0.0-1.1) Eosinophils # (Auto) 0.0 x10^3/uL (0.0-0.7) Basophils # (Auto) 0.0 x10^3/uL (0.0-0.2) Sodium Level 143 mmol/L (136-145) Potassium Level 3.8 mmol/L (3.5-5.1) Chloride Level 106 mmol/L (98-107) Carbon Dioxide Level 29 mmol/L (21-32) Anion Gap 8 (6-14) Blood Urea Nitrogen 22 mg/dL (7-20) H Creatinine 0.6 mg/dL (0.6-1.0) Estimated GFR (Cockcroft-Gault) 99.7 BUN/Creatinine Ratio 37 (6-20) H Glucose Level 95 mg/dL (70-99) Calcium Level 8.9 mg/dL (8.5-10.1) Total Bilirubin 0.3 mg/dL (0.2-1.0) Aspartate Amino Transferase (AST) 15 U/L (15-37) Alanine Aminotransferase (ALT) 28 U/L (14-59) Alkaline Phosphatase 53 U/L (46-116) Total Protein 6.7 g/dL (6.4-8.2) Albumin 3.3 g/dL (3.4-5.0) L Albumin/Globulin Ratio 1.0 (1.0-1.7) Valproic Acid Level 33 mcg/mL (50-100) L Valproic Acid Last Dose Date 05/17/19 Valproic Acid Last Dose Time 1700 Current Medications: I have reviewed the current psychotropics carefully including drug interactions. Risk benefit ratio favors no change other than as noted in my dictated progress note. Diagnosis: Problems: (1) Anxiety disorder (2) Bipolar affective, mixed (3) Mild cognitive impairment (4) Obsessive compulsive disorder IAN SANCHEZ MD May 18, 2019 22:08
[2019-05-19 05:27] VITALS: BP 129/70
[2019-05-19] MEDS: CLOBETASOL EMOLLIENT 0.05% TOPICAL CREAM 15GM TUBE. TP SCH ×2 (08:15→19:35)
[2019-05-19] MEDS: LACTOBACILLUS RHAMNOSUS GG 1 CAPSULE. PO SCH ×2 (08:15→19:39)
[2019-05-19] MEDS: DIVALPROEX 125 MG CAP.SPRINK PO SCH ×2 (08:17→16:19)
[2019-05-19 15:34] VITALS: BP 121/77
[2019-05-19] MEDS: traZODone 50 MG TABLET. PO SCH (19:39)
[2019-05-19] MEDS: risperiDONE 0.5 MG TABLET. PO SCH (19:39)
--- NOTE | 2019-05-19 23:06 | PDOC ---
Exam Note: Harpreet Note: Please also refer to the separate dictated note~for this date of service dictated separately.~Patient seen individually. Discussed the patient with Nursing staff reviewed the chart.~Reviewed interim history and current functioning. Reviewed vital signs,~Labs/ Radiology~and current medications noted below. Continue current treatment with the changes noted in the dictated addendum note Assessment: Vital Signs/I&O: Vital Signs Date Time Temp Pulse Resp B/P (MAP) Pulse Ox O2 Delivery O2 Flow Rate FiO2 05/19/19 15:34 98.3 102 20 121/77 (92) 92 05/19/19 05:27 Room Air I & O 05/18/19 05/18/19 05/19/19 15:00 23:00 07:00 Intake Total 600 ml 360 ml 240 ml Balance 600 ml 360 ml 240 ml Current Medications: Meds: Current Medications Medications (Trade) Dose Ordered Sig/Ally Route PRN Reason Start Time Stop Time Status Last Admin Dose Admin Divalproex Sodium (Depakote Sprinkles) 375 mg BID@0900,1700 PO 05/19/19 09:00 05/19/19 16:19 I have reviewed the current psychotropics carefully including drug interactions. Risk benefit ratio favors no change other than as noted in my dictated progress note. Diagnosis: Problems: (1) Anxiety disorder (2) Bipolar affective, mixed (3) Mild cognitive impairment (4) Obsessive compulsive disorder IAN SANCHEZ MD May 19, 2019 23:06
[2019-05-20 06:18] VITALS: BP 126/62
[2019-05-20] MEDS: LACTOBACILLUS RHAMNOSUS GG 1 CAPSULE. PO SCH ×2 (08:06→20:12)
[2019-05-20] MEDS: DIVALPROEX 125 MG CAP.SPRINK PO SCH ×2 (08:06→16:07)
[2019-05-20] MEDS: CLOBETASOL EMOLLIENT 0.05% TOPICAL CREAM 15GM TUBE. TP SCH ×2 (08:07→20:13)
[2019-05-20 16:15] VITALS: BP 126/74
[2019-05-20] MEDS: traZODone 50 MG TABLET. PO SCH (20:12)
[2019-05-20] MEDS: risperiDONE 0.5 MG TABLET. PO SCH (20:12)
--- NOTE | 2019-05-20 21:41 | PDOC ---
Exam Note: Harpreet Note: Please also refer to the separate dictated note~for this date of service dictated separately.~Patient seen individually. Discussed the patient with Nursing staff reviewed the chart.~Reviewed interim history and current functioning. Reviewed vital signs,~Labs/ Radiology~and current medications noted below. Continue current treatment with the changes noted in the dictated addendum note Assessment: Vital Signs/I&O: Vital Signs Date Time Temp Pulse Resp B/P (MAP) Pulse Ox O2 Delivery O2 Flow Rate FiO2 05/20/19 16:15 97.5 103 20 126/74 (91) 95 05/20/19 06:18 Room Air I & O 05/19/19 05/19/19 05/20/19 15:00 23:00 07:00 Intake Total 480 ml 240 ml Balance 480 ml 240 ml Current Medications: I have reviewed the current psychotropics carefully including drug interactions. Risk benefit ratio favors no change other than as noted in my dictated progress note. Diagnosis: Problems: (1) Anxiety disorder (2) Bipolar affective, mixed (3) Mild cognitive impairment (4) Obsessive compulsive disorder IAN SANCHEZ MD May 20, 2019 21:41
--- NOTE | 2019-05-20 21:56 | PN ---
DATE: 05/18/2019 This late entry covers the elements not covered in my initial note. SUBJECTIVE: I met with the patient in the evening of 05/18/2019. The patient slept 6 hours previous night. She remains hyperverbal and still isolates in her room, preoccupied with reading the Bible and writing profusely. She keeps herself wrapped in multiple layers of blankets. Valproic acid level 35 on Depakote Sprinkles 250 b.i.d. We will increase to 375 b.i.d. Check CBC, CMP, valproic acid level in 3 days. REVIEW OF SYSTEMS: No CV, , pulmonary, eye, ENT system symptoms on review. Reliability varies. MENTAL STATUS EXAM: Oriented to herself and situation. Insight, judgment, recent memory is impaired, remote is better. Language function intact. Attention span short. Mood and affect still remains somewhat grandiose, labile at times. LABORATORY DATA: Reviewed. IMPRESSION: Unchanged from initial note. Bipolar 1 disorder, mixed with psychotic features versus schizoaffective disorder, bipolar type. Rest unchanged. PLAN: No change from initial note other than what is noted above. She is having a guardianship hearing. Dr. House has completed psychological testing for capacity to make decisions and I have reviewed this. IAN SANCHEZ MD DR: LEOBARDO/immanuel JOB#: [id number] / [id number]
--- NOTE | 2019-05-20 21:59 | PN ---
DATE: 05/19/2019 PSYCHIATRIC PROGRESS NOTE This is a late entry 05/19/2019 covers elements not covered in my initial note. SUBJECTIVE: I met with the patient in the evening. The patient slept 7-1/2 hours previous night. Her brother and [id number] visited and she talked at length about this. Labs are to be reviewed and repeated on the for her valproic acid. No CV, , pulmonary, eye, ENT system symptoms on review. Reliability varies. She wrapped herself in multiple layers of clothing, somewhat confused, distractible, hyperverbal. MENTAL STATUS EXAM: Oriented to herself, situation. Speech coherent, rapid at times. Abstraction fair, computation impaired, language function intact, attention span short. Mood and affect remain somewhat grandiose. LABORATORY DATA: Reviewed. IMPRESSION: Unchanged from initial note. PLAN: No change from initial note. MAN Isidra SANCHEZ MD DR: LEOBARDO/immanuel JOB#: [id number] / [id number]
[2019-05-21 06:49] VITALS: BP 120/69
[2019-05-21 07:20] LABS: BASO % 1 % (0-3); EOS # 0.1 x10^3/uL (0.0-0.7); EOS % 2 % (0-3); HEMATOCRIT 39.6 % (36.0-47.0); HEMOGLOBIN 13.1 g/dL (12.0-15.5); LYMPH % 30 % (24-48); MEAN CORPUSCULAR HEMOGLOBIN 31 pg (25-35); MEAN CORPUSCULAR HGB CONC 33 g/dL (31-37); MEAN CORPUSCULAR VOLUME 92 fL (79-100); MONO # 0.5 x10^3/uL (0.0-1.1); MONO % 14 % (0-9); NEUT # 1.8 x10^3uL (1.8-7.7); NEUT % 54 % (31-73); PLATELET COUNT 301 x10^3/uL (140-400); RED BLOOD COUNT 4.29 x10^6/uL (3.50-5.40); RED CELL DISTRIBUTION WIDTH 13.8 % (11.5-14.5); WHITE BLOOD COUNT 3.3 x10^3/uL (4.0-11.0)
[2019-05-21 07:36] LABS: ALBUMIN 3.3 g/dL (3.4-5.0); ALK PHOS 53 U/L (46-116); ALT (SGPT) 25 U/L (14-59); ANION GAP 9 (6-14); AST (SGOT) 13 U/L (15-37); BLOOD UREA NITROGEN 20 mg/dL (7-20); BUN/CREATININE RATIO 33 (6-20); CALCIUM 8.9 mg/dL (8.5-10.1); CARBON DIOXIDE 29 mmol/L (21-32); CHLORIDE 105 mmol/L (98-107); CREATININE 0.6 mg/dL (0.6-1.0); GFR 99.7; GLUCOSE 97 mg/dL (70-99); POTASSIUM 3.7 mmol/L (3.5-5.1); SODIUM 143 mmol/L (136-145); TOTAL BILIRUBIN 0.4 mg/dL (0.2-1.0); TOTAL PROTEIN 6.7 g/dL (6.4-8.2)
[2019-05-21 07:39] LABS: VAL ACID 51 mcg/mL (50-100)
[2019-05-21] MEDS: LACTOBACILLUS RHAMNOSUS GG 1 CAPSULE. PO SCH ×2 (08:09→19:58)
[2019-05-21] MEDS: DIVALPROEX 125 MG CAP.SPRINK PO SCH ×2 (08:10→16:44)
[2019-05-21] MEDS: CLOBETASOL EMOLLIENT 0.05% TOPICAL CREAM 15GM TUBE. TP SCH ×2 (09:34→19:58)
[2019-05-21 16:18] VITALS: BP 118/73
[2019-05-21] MEDS: risperiDONE 0.5 MG TABLET. PO SCH (19:58)
[2019-05-21] MEDS: traZODone 50 MG TABLET. PO SCH (19:58)
--- NOTE | 2019-05-21 22:31 | PDOC ---
Exam Note: Harpreet Note: Please also refer to the separate dictated note~for this date of service dictated separately.~Patient seen individually. Discussed the patient with Nursing staff reviewed the chart.~Reviewed interim history and current functioning. Reviewed vital signs,~Labs/ Radiology~and current medications noted below. Continue current treatment with the changes noted in the dictated addendum note Assessment: Vital Signs/I&O: Vital Signs Date Time Temp Pulse Resp B/P (MAP) Pulse Ox O2 Delivery O2 Flow Rate FiO2 05/21/19 16:18 98.0 99 18 118/73 (88) 97 05/20/19 06:18 Room Air I & O 05/20/19 05/20/19 05/21/19 14:59 22:59 06:59 Intake Total 720 ml 240 ml 0 ml Balance 720 ml 240 ml 0 ml Labs: Laboratory Tests Test 05/21/19 06:41 White Blood Count 3.3 x10^3/uL (4.0-11.0) L Red Blood Count 4.29 x10^6/uL (3.50-5.40) Hemoglobin 13.1 g/dL (12.0-15.5) Hematocrit 39.6 % (36.0-47.0) Mean Corpuscular Volume 92 fL (79-100) Mean Corpuscular Hemoglobin 31 pg (25-35) Mean Corpuscular Hemoglobin Concent 33 g/dL (31-37) Red Cell Distribution Width 13.8 % (11.5-14.5) Platelet Count 301 x10^3/uL (140-400) Neutrophils (%) (Auto) 54 % (31-73) Lymphocytes (%) (Auto) 30 % (24-48) Monocytes (%) (Auto) 14 % (0-9) H Eosinophils (%) (Auto) 2 % (0-3) Basophils (%) (Auto) 1 % (0-3) Neutrophils # (Auto) 1.8 x10^3uL (1.8-7.7) Lymphocytes # (Auto) 1.0 x10^3/uL (1.0-4.8) Monocytes # (Auto) 0.5 x10^3/uL (0.0-1.1) Eosinophils # (Auto) 0.1 x10^3/uL (0.0-0.7) Basophils # (Auto) 0.0 x10^3/uL (0.0-0.2) Sodium Level 143 mmol/L (136-145) Potassium Level 3.7 mmol/L (3.5-5.1) Chloride Level 105 mmol/L (98-107) Carbon Dioxide Level 29 mmol/L (21-32) Anion Gap 9 (6-14) Blood Urea Nitrogen 20 mg/dL (7-20) Creatinine 0.6 mg/dL (0.6-1.0) Estimated GFR (Cockcroft-Gault) 99.7 BUN/Creatinine Ratio 33 (6-20) H Glucose Level 97 mg/dL (70-99) Calcium Level 8.9 mg/dL (8.5-10.1) Total Bilirubin 0.4 mg/dL (0.2-1.0) Aspartate Amino Transferase (AST) 13 U/L (15-37) L Alanine Aminotransferase (ALT) 25 U/L (14-59) Alkaline Phosphatase 53 U/L (46-116) Total Protein 6.7 g/dL (6.4-8.2) Albumin 3.3 g/dL (3.4-5.0) L Albumin/Globulin Ratio 1.0 (1.0-1.7) Valproic Acid Level 51 mcg/mL (50-100) Valproic Acid Last Dose Date 05/20/2019 Valproic Acid Last Dose Time 1700 Current Medications: I have reviewed the current psychotropics carefully including drug interactions. Risk benefit ratio favors no change other than as noted in my dictated progress note. Diagnosis: Problems: (1) Anxiety disorder (2) Bipolar affective, mixed (3) Mild cognitive impairment (4) Obsessive compulsive disorder (5) Schizoaffective disorder, bipolar type IAN SANCHEZ MD May 21, 2019 22:31
--- NOTE | 2019-05-22 00:42 | PN ---
DATE: 05/20/2019 This late entry 05/20/2019, covers elements not covered in my initial note. SUBJECTIVE: I met with the patient in the evening. The patient slept 7-3/4 hours previous night, remains hyperverbal, somewhat distractable. REVIEW OF SYSTEMS: No CV, , pulmonary, eye system symptoms on review. MENTAL STATUS EXAM: The patient is oriented to herself and situation. Speech coherent, rapid at times. Abstraction fair, computation impaired, language function intact, attention span short. Mood and affect remain somewhat labile, anxious, but improved. LABORATORY DATA: Reviewed. IMPRESSION: Unchanged from initial note. PLAN: No change from initial note. MAN Isidra SANCHEZ MD DR: LEOBARDO/immanuel JOB#: [id number] / [id number]
[2019-05-22 05:59] VITALS: BP 132/79
[2019-05-22] MEDS: CLOBETASOL EMOLLIENT 0.05% TOPICAL CREAM 15GM TUBE. TP SCH ×2 (08:07→20:39)
[2019-05-22] MEDS: LACTOBACILLUS RHAMNOSUS GG 1 CAPSULE. PO SCH ×2 (08:07→20:38)
[2019-05-22] MEDS: DIVALPROEX 125 MG CAP.SPRINK PO SCH ×2 (08:07→17:06)
[2019-05-22 16:17] VITALS: BP 122/70
[2019-05-22] MEDS: risperiDONE 0.5 MG TABLET. PO SCH (20:38)
[2019-05-22] MEDS: traZODone 50 MG TABLET. PO SCH (20:38)
--- NOTE | 2019-05-22 22:40 | PDOC ---
Exam Note: Harpreet Note: Please also refer to the separate dictated note~for this date of service dictated separately.~Patient seen individually. Discussed the patient with Nursing staff reviewed the chart.~Reviewed interim history and current functioning. Reviewed vital signs,~Labs/ Radiology~and current medications noted below. Continue current treatment with the changes noted in the dictated addendum note Assessment: Vital Signs/I&O: Vital Signs Date Time Temp Pulse Resp B/P (MAP) Pulse Ox O2 Delivery O2 Flow Rate FiO2 05/22/19 16:17 98.1 101 16 122/70 (87) 97 05/22/19 05:59 Room Air I & O 05/21/19 05/21/19 05/22/19 14:59 22:59 06:59 Intake Total 600 ml 340 ml Balance 600 ml 340 ml Current Medications: I have reviewed the current psychotropics carefully including drug interactions. Risk benefit ratio favors no change other than as noted in my dictated progress note. Diagnosis: Problems: (1) Anxiety disorder (2) Bipolar affective, mixed (3) Mild cognitive impairment (4) Obsessive compulsive disorder (5) Schizoaffective disorder, bipolar type (6) Psoriasis (7) Altered mental status IAN SANCHEZ MD May 22, 2019 22:40
--- NOTE | 2019-05-22 23:07 | PN ---
DATE: 05/21/2019 PSYCHIATRIC PROGRESS NOTE This late entry, 05/21/2019, covers elements not covered in my initial note. SUBJECTIVE: I met with the patient in the evening. The patient slept 7-3/4 hours previous night. She remains hyperverbal, but less so than before. REVIEW OF SYSTEMS: No CV, , pulmonary, eye system symptoms on review. I met with her in her room. MENTAL STATUS EXAM: Oriented to herself and situation. Speech is coherent, rapid at times. Abstraction fair, computation impaired, language function intact, attention span short. She is easily distractable. LABORATORY DATA: Reviewed. IMPRESSION: Unchanged from initial note. PLAN: No change from initial note. IAN SANCHEZ MD DR: LEOBARDO/immanuel JOB#: [id number] / [id number]
[2019-05-23 05:52] VITALS: BP 122/61
[2019-05-23] MEDS: CLOBETASOL EMOLLIENT 0.05% TOPICAL CREAM 15GM TUBE. TP SCH ×2 (07:39→20:06)
[2019-05-23] MEDS: LACTOBACILLUS RHAMNOSUS GG 1 CAPSULE. PO SCH ×2 (07:39→19:27)
[2019-05-23] MEDS: DIVALPROEX 125 MG CAP.SPRINK PO SCH ×2 (07:39→16:34)
[2019-05-23 07:40] LABS: BASO % 1 % (0-3); EOS # 0.1 x10^3/uL (0.0-0.7); EOS % 2 % (0-3); HEMOGLOBIN 13.1 g/dL (12.0-15.5); LYMPH # 0.7 x10^3/uL (1.0-4.8); LYMPH % 20 % (24-48); MEAN CORPUSCULAR HEMOGLOBIN 31 pg (25-35); MEAN CORPUSCULAR HGB CONC 34 g/dL (31-37); MEAN CORPUSCULAR VOLUME 93 fL (79-100); MONO # 0.5 x10^3/uL (0.0-1.1); MONO % 14 % (0-9); NEUT # 2.3 x10^3uL (1.8-7.7); NEUT % 63 % (31-73); PLATELET COUNT 306 x10^3/uL (140-400); RED BLOOD COUNT 4.21 x10^6/uL (3.50-5.40); WHITE BLOOD COUNT 3.6 x10^3/uL (4.0-11.0)
[2019-05-23 16:19] VITALS: BP 118/57
[2019-05-23] MEDS: traZODone 50 MG TABLET. PO SCH (19:27)
[2019-05-23] MEDS: risperiDONE 0.5 MG TABLET. PO SCH (19:27)
--- NOTE | 2019-05-23 20:31 | PN ---
DATE: 05/22/2019 PSYCHIATRIC PROGRESS NOTE. This is a late entry of 05/22/2019, covers the elements not covered in my initial note. SUBJECTIVE: I met with the patient in the evening in her room at length. The patient slept 7-1/2 hours previous night. WBC has dropped to 3.3, will repeat morning of 05/23/2019. She has been less tangential with less flight of ideas per nursing report. REVIEW OF SYSTEMS: No CV, , pulmonary, eye, ENT system symptoms on review. Reliability varies. MENTAL STATUS EXAM: Oriented to herself and situation. Speech coherent, rapid at times. Abstraction fair, computation impaired, language function intact, attention span short. She is distractable. LABORATORY DATA: Reviewed. IMPRESSION: Schizoaffective disorder, bipolar type, mixed with psychotic features. Rest unchanged. PLAN: Maintain Risperdal, Depakote along with trazodone for insomnia. Repeat CBC 05/23/2019. Check labs level on the Depakote, adjust to reach therapeutic level and then decide at that time whether we need to increase the Risperdal further. MAN Isidra SANCHEZ MD DR: LEOBARDO/immanuel JOB#: [id number] / [id number]
--- NOTE | 2019-05-23 22:13 | PDOC ---
Exam Note: Harpreet Note: Please also refer to the separate dictated note~for this date of service dictated separately.~Patient seen individually. Discussed the patient with Nursing staff reviewed the chart.~Reviewed interim history and current functioning. Reviewed vital signs,~Labs/ Radiology~and current medications noted below. Continue current treatment with the changes noted in the dictated addendum note Assessment: Vital Signs/I&O: Vital Signs Date Time Temp Pulse Resp B/P (MAP) Pulse Ox O2 Delivery O2 Flow Rate FiO2 05/23/19 16:19 98.4 100 16 118/57 (77) 97 05/22/19 05:59 Room Air I & O 05/22/19 05/22/19 05/23/19 15:00 23:00 07:00 Intake Total 600 ml 240 ml 120 ml Balance 600 ml 240 ml 120 ml Labs: Laboratory Tests Test 05/23/19 07:24 White Blood Count 3.6 x10^3/uL (4.0-11.0) L Red Blood Count 4.21 x10^6/uL (3.50-5.40) Hemoglobin 13.1 g/dL (12.0-15.5) Hematocrit 39.0 % (36.0-47.0) Mean Corpuscular Volume 93 fL (79-100) Mean Corpuscular Hemoglobin 31 pg (25-35) Mean Corpuscular Hemoglobin Concent 34 g/dL (31-37) Red Cell Distribution Width 14.0 % (11.5-14.5) Platelet Count 306 x10^3/uL (140-400) Neutrophils (%) (Auto) 63 % (31-73) Lymphocytes (%) (Auto) 20 % (24-48) L Monocytes (%) (Auto) 14 % (0-9) H Eosinophils (%) (Auto) 2 % (0-3) Basophils (%) (Auto) 1 % (0-3) Neutrophils # (Auto) 2.3 x10^3uL (1.8-7.7) Lymphocytes # (Auto) 0.7 x10^3/uL (1.0-4.8) L Monocytes # (Auto) 0.5 x10^3/uL (0.0-1.1) Eosinophils # (Auto) 0.1 x10^3/uL (0.0-0.7) Basophils # (Auto) 0.0 x10^3/uL (0.0-0.2) Current Medications: I have reviewed the current psychotropics carefully including drug interactions. Risk benefit ratio favors no change other than as noted in my dictated progress note. Diagnosis: Problems: (1) Anxiety disorder (2) Bipolar affective, mixed (3) Mild cognitive impairment (4) Obsessive compulsive disorder (5) Schizoaffective disorder, bipolar type (6) Psoriasis (7) Altered mental status IAN SANCHEZ MD May 23, 2019 22:13
[2019-05-24 06:07] VITALS: BP 151/92
[2019-05-24] MEDS: DIVALPROEX 125 MG CAP.SPRINK PO SCH ×2 (08:33→17:30)
[2019-05-24] MEDS: CLOBETASOL EMOLLIENT 0.05% TOPICAL CREAM 15GM TUBE. TP SCH ×2 (08:33→19:43)
[2019-05-24] MEDS: LACTOBACILLUS RHAMNOSUS GG 1 CAPSULE. PO SCH ×2 (08:33→19:19)
[2019-05-24 16:16] VITALS: BP 124/72
[2019-05-24] MEDS: risperiDONE 0.5 MG TABLET. PO SCH (19:19)
[2019-05-24] MEDS: traZODone 50 MG TABLET. PO SCH (19:19)
--- NOTE | 2019-05-24 22:18 | PDOC ---
Exam Note: Harpreet Note: Please also refer to the separate dictated note~for this date of service dictated separately.~Patient seen individually. Discussed the patient with Nursing staff reviewed the chart.~Reviewed interim history and current functioning. Reviewed vital signs,~Labs/ Radiology~and current medications noted below. Continue current treatment with the changes noted in the dictated addendum note Assessment: Vital Signs/I&O: Vital Signs Date Time Temp Pulse Resp B/P (MAP) Pulse Ox O2 Delivery O2 Flow Rate FiO2 05/24/19 16:16 98.2 104 18 124/72 (89) 96 Room Air I & O 05/23/19 05/23/19 05/24/19 14:59 22:59 06:59 Intake Total 600 ml 240 ml 100 ml Balance 600 ml 240 ml 100 ml Current Medications: I have reviewed the current psychotropics carefully including drug interactions. Risk benefit ratio favors no change other than as noted in my dictated progress note. Diagnosis: Problems: (1) Anxiety disorder (2) Bipolar affective, mixed (3) Mild cognitive impairment (4) Obsessive compulsive disorder (5) Schizoaffective disorder, bipolar type (6) Psoriasis (7) Altered mental status IAN SANCHEZ MD May 24, 2019 22:18
[2019-05-25 05:42] VITALS: BP 136/79
[2019-05-25] MEDS: LACTOBACILLUS RHAMNOSUS GG 1 CAPSULE. PO SCH ×2 (08:06→19:19)
[2019-05-25] MEDS: CLOBETASOL EMOLLIENT 0.05% TOPICAL CREAM 15GM TUBE. TP SCH ×2 (08:07→20:38)
[2019-05-25] MEDS: DIVALPROEX 125 MG CAP.SPRINK PO SCH ×2 (08:07→16:53)
[2019-05-25 15:34] VITALS: BP 151/76
[2019-05-25] MEDS: traZODone 50 MG TABLET. PO SCH (19:19)
[2019-05-25] MEDS: risperiDONE 0.5 MG TABLET. PO SCH (19:19)
--- NOTE | 2019-05-25 22:18 | PN ---
DATE: 05/23/2019 PSYCHIATRIC PROGRESS NOTE This late entry 05/23/2019 covers elements not covered in my initial note. SUBJECTIVE: I met with the patient in the evening. The patient remains hyperverbal, somewhat obsessive, hoarding things, hyper-anabaptist, but otherwise pleasant, friendly and distractable. WBC improved to 3.6. Valproic acid level on is 51, therapeutic. REVIEW OF SYSTEMS: No CV, , pulmonary, eye, ENT system symptoms on review, met with her in her room. MENTAL STATUS EXAM: Oriented to herself and situation. Speech is coherent, can be pressured at times. Abstraction fair, computation impaired, language function intact, attention span short. Mood and affect remains somewhat labile. LABORATORY DATA: Reviewed. IMPRESSION: Unchanged from initial note. PLAN: Continue current psychotropics including Depakote with a therapeutic level. Risperdal has been adjusted, may need to further adjust this depending on her progress. IAN SANCHEZ MD DR: LEOBARDO/immanuel JOB#: [id number] / [id number]
--- NOTE | 2019-05-25 22:18 | PN ---
DATE: 05/24/2019 PSYCHIATRIC PROGRESS NOTE. This is a late entry of 05/24/2019, covers the elements not covered in my initial note. SUBJECTIVE: I met with the patient in the evening. The patient slept 7 hours previous night. Appetite 75-100% and staffed at a treatment team meeting with the entire team in the morning. Seen individually in the evening. Reviewed her past extensive substance abuse including cocaine, marijuana, amongst others. She remains somewhat hyperverbal, but otherwise pleasant and less hyper-evangelical, as I met with her in the evening. REVIEW OF SYSTEMS: No CV, , pulmonary, eye system symptoms on review. MENTAL STATUS EXAM: Oriented to herself and situation. Speech is coherent, a little pressured. Abstraction fair, computation impaired, language function intact, attention span short. Mood and affect still labile, but improved. LABORATORY DATA: Reviewed. IMPRESSION: Unchanged from initial note. PLAN: No change from initial note. IAN SANCHEZ MD DR: LEOBARDO/immanuel JOB#: [id number] / [id number]
--- NOTE | 2019-05-25 22:31 | PDOC ---
Exam Note: Harpreet Note: Please also refer to the separate dictated note~for this date of service dictated separately.~Patient seen individually. Discussed the patient with Nursing staff reviewed the chart.~Reviewed interim history and current functioning. Reviewed vital signs,~Labs/ Radiology~and current medications noted below. Continue current treatment with the changes noted in the dictated addendum note Assessment: Vital Signs/I&O: Vital Signs Date Time Temp Pulse Resp B/P (MAP) Pulse Ox O2 Delivery O2 Flow Rate FiO2 05/25/19 15:34 97.3 106 19 151/76 (101) 96 05/25/19 05:42 Room Air I & O 05/24/19 05/24/19 05/25/19 14:59 22:59 06:59 Intake Total 720 ml 480 ml 120 ml Balance 720 ml 480 ml 120 ml Current Medications: I have reviewed the current psychotropics carefully including drug interactions. Risk benefit ratio favors no change other than as noted in my dictated progress note. Diagnosis: Problems: (1) Anxiety disorder (2) Bipolar affective, mixed (3) Mild cognitive impairment (4) Obsessive compulsive disorder (5) Schizoaffective disorder, bipolar type (6) Psoriasis (7) Altered mental status IAN SANCHEZ MD May 25, 2019 22:31
[2019-05-26 05:27] VITALS: BP 125/61
[2019-05-26 07:48] LABS: HEMATOCRIT 38.2 % (36.0-47.0); HEMOGLOBIN 12.8 g/dL (12.0-15.5); RED BLOOD COUNT 4.1 x10^6/uL (3.50-5.40); RED CELL DISTRIBUTION WIDTH 14.3 % (11.5-14.5); WHITE BLOOD COUNT 4.1 x10^3/uL (4.0-11.0)
[2019-05-26] MEDS: LACTOBACILLUS RHAMNOSUS GG 1 CAPSULE. PO SCH ×2 (08:13→19:27)
[2019-05-26] MEDS: DIVALPROEX 125 MG CAP.SPRINK PO SCH ×2 (08:14→17:03)
[2019-05-26] MEDS: CLOBETASOL EMOLLIENT 0.05% TOPICAL CREAM 15GM TUBE. TP SCH ×2 (08:15→19:28)
[2019-05-26 16:18] VITALS: BP 155/65
[2019-05-26] MEDS: traZODone 50 MG TABLET. PO SCH (19:27)
[2019-05-26] MEDS: risperiDONE 0.5 MG TABLET. PO SCH (19:27)
[2019-05-26] MEDS ORDERED: POLYVINYL ALCOHOL 1.4% OPHTH SOLUTION 15ML BOTTLE. OU PRN (21:15)
--- NOTE | 2019-05-26 22:59 | PDOC ---
Exam Note: Harpreet Note: Please also refer to the separate dictated note~for this date of service dictated separately.~Patient seen individually. Discussed the patient with Nursing staff reviewed the chart.~Reviewed interim history and current functioning. Reviewed vital signs,~Labs/ Radiology~and current medications noted below. Continue current treatment with the changes noted in the dictated addendum note Assessment: Vital Signs/I&O: Vital Signs Date Time Temp Pulse Resp B/P (MAP) Pulse Ox O2 Delivery O2 Flow Rate FiO2 05/26/19 16:18 97.0 94 18 155/65 (95) 95 05/25/19 05:42 Room Air I & O 05/25/19 05/25/19 05/26/19 15:00 23:00 07:00 Intake Total 960 ml 480 ml Balance 960 ml 480 ml Labs: Laboratory Tests Test 05/26/19 07:24 White Blood Count 4.1 x10^3/uL (4.0-11.0) Red Blood Count 4.10 x10^6/uL (3.50-5.40) Hemoglobin 12.8 g/dL (12.0-15.5) Hematocrit 38.2 % (36.0-47.0) Mean Corpuscular Volume 93 fL (79-100) Mean Corpuscular Hemoglobin 31 pg (25-35) Mean Corpuscular Hemoglobin Concent 34 g/dL (31-37) Red Cell Distribution Width 14.3 % (11.5-14.5) Platelet Count 328 x10^3/uL (140-400) Current Medications: I have reviewed the current psychotropics carefully including drug interactions. Risk benefit ratio favors no change other than as noted in my dictated progress note. Diagnosis: Problems: (1) Anxiety disorder (2) Bipolar affective, mixed (3) Mild cognitive impairment (4) Obsessive compulsive disorder (5) Schizoaffective disorder, bipolar type (6) Psoriasis (7) Altered mental status IAN SANCHEZ MD May 26, 2019 22:59
[2019-05-27 05:43] VITALS: BP 118/56
[2019-05-27] MEDS: LACTOBACILLUS RHAMNOSUS GG 1 CAPSULE. PO SCH ×2 (08:11→19:47)
[2019-05-27] MEDS: CLOBETASOL EMOLLIENT 0.05% TOPICAL CREAM 15GM TUBE. TP SCH ×2 (08:11→19:52)
[2019-05-27] MEDS: DIVALPROEX 125 MG CAP.SPRINK PO SCH ×2 (08:11→17:01)
[2019-05-27 16:59] VITALS: BP 143/71
[2019-05-27] MEDS: risperiDONE 0.5 MG TABLET. PO SCH (19:47)
[2019-05-27] MEDS: traZODone 50 MG TABLET. PO SCH (19:47)
--- NOTE | 2019-05-27 22:07 | PDOC ---
Exam Note: Harpreet Note: Please also refer to the separate dictated note~for this date of service dictated separately.~Patient seen individually. Discussed the patient with Nursing staff reviewed the chart.~Reviewed interim history and current functioning. Reviewed vital signs,~Labs/ Radiology~and current medications noted below. Continue current treatment with the changes noted in the dictated addendum note Assessment: Vital Signs/I&O: Vital Signs Date Time Temp Pulse Resp B/P (MAP) Pulse Ox O2 Delivery O2 Flow Rate FiO2 05/27/19 16:59 97.6 94 18 143/71 (95) 96 05/27/19 05:43 Room Air I & O 05/26/19 05/26/19 05/27/19 15:00 23:00 07:00 Intake Total 960 ml 360 ml 0 ml Balance 960 ml 360 ml 0 ml Current Medications: I have reviewed the current psychotropics carefully including drug interactions. Risk benefit ratio favors no change other than as noted in my dictated progress note. Diagnosis: Problems: (1) Anxiety disorder (2) Bipolar affective, mixed (3) Mild cognitive impairment (4) Obsessive compulsive disorder (5) Schizoaffective disorder, bipolar type (6) Altered mental status IAN SANCHEZ MD May 27, 2019 22:07
--- NOTE | 2019-05-27 23:30 | PN ---
DATE: 05/25/2019 PSYCHIATRIC PROGRESS NOTE This late entry 05/25/2019 covers elements not covered in my initial note. SUBJECTIVE: I met with the patient in the evening of 05/25/2019 in her room. The patient slept 6-1/4 hours previous night. She remains somewhat hyperverbal, distractible, spending much time in her room most of the day. Her WBC was low and we will repeat a CBC morning of 05/26/2019. REVIEW OF SYSTEMS: No CV, , pulmonary, eye, ENT system symptoms on review. MENTAL STATUS EXAM: Oriented to herself and situation. Speech coherent, rapid at times. Abstraction fair, computation impaired, language function intact, attention span short. Mood and affect remain somewhat anxious, labile. LABORATORY DATA: Reviewed. IMPRESSION: Unchanged from initial note. PLAN: No change from initial note. Valproic acid level therapeutic at 51. Continue Depakote Sprinkles 375 mg twice a day, trazodone 50 mg at bedtime, Risperdal 0.5 mg at bedtime. Adjust further as clinically indicated. She is less hyper-confucianism. MAN Isidra SANCHEZ MD DR: LEOBARDO/immanuel JOB#: [id number] / [id number]
--- NOTE | 2019-05-27 23:45 | PN ---
DATE: 05/26/2019 PSYCHIATRIC PROGRESS NOTE This late entry 05/26/2019 covers elements not covered in my initial note. SUBJECTIVE: I met with the patient in the evening of 05/26/2019. The patient slept for 5-1/4 hours previous night. The patient remains somewhat hyperverbal, but pleasant. Does complain of dry eyes and we will start her on artificial tears. She remains somewhat distractable. REVIEW OF SYSTEMS: No CV, , pulmonary, eye, ENT system symptoms on review other than above. MENTAL STATUS EXAM: Oriented to herself and situation. Speech is coherent, rapid at times. Abstraction fair, computation impaired, language function intact, attention span short. Mood and affect remain somewhat labile. LABORATORY DATA: Reviewed. IMPRESSION: Unchanged from initial note. Valproic acid level therapeutic at 51. PLAN: Continue current psychotropics, Depakote, Risperdal, trazodone for insomnia. IAN SANCHEZ MD DR: LEOBARDO/immanuel JOB#: [id number] / [id number]
[2019-05-28 05:57] VITALS: BP 45/73
[2019-05-28] MEDS: LACTOBACILLUS RHAMNOSUS GG 1 CAPSULE. PO SCH ×2 (08:26→19:18)
[2019-05-28] MEDS: DIVALPROEX 125 MG CAP.SPRINK PO SCH ×2 (08:26→17:20)
[2019-05-28] MEDS: CLOBETASOL EMOLLIENT 0.05% TOPICAL CREAM 15GM TUBE. TP SCH ×2 (08:27→19:33)
--- NOTE | 2019-05-28 14:25 | PN ---
DATE: 05/27/2019 PSYCHIATRIC PROGRESS NOTE This late entry 05/27/2019 covers elements not covered in my initial note. SUBJECTIVE: I met with the patient in the evening of 05/27/2019 in her room at length. The patient slept 6 hours previous night. She is still hyperverbal, but less so than before. She is distractable, but redirects. REVIEW OF SYSTEMS: No CV, , pulmonary, eye, ENT system symptoms on review. Reliability varies. MENTAL STATUS EXAM: Oriented to herself and situation. Speech is coherent, pressured. Abstraction fair, computation impaired, language function intact, attention span short. Mood and affect remain somewhat hypomanic. LABORATORY DATA: Reviewed. IMPRESSION: Unchanged from initial note. PLAN: Continue current psychotropics. Depakote Sprinkles 375 mg b.i.d., level therapeutic at 51, Risperdal 0.5 mg at bedtime, trazodone 50 mg at bedtime, may repeat times 1 for insomnia. IAN SANCHEZ MD DR: LEOBARDO/immanuel JOB#: [id number] / [id number]
[2019-05-28 15:40] VITALS: BP 125/73
[2019-05-28] MEDS: traZODone 50 MG TABLET. PO SCH (19:18)
[2019-05-28] MEDS: risperiDONE 0.5 MG TABLET. PO SCH (19:18)
--- NOTE | 2019-05-28 22:26 | PDOC ---
Exam Note: Harpreet Note: Please also refer to the separate dictated note~for this date of service dictated separately.~Patient seen individually. Discussed the patient with Nursing staff reviewed the chart.~Reviewed interim history and current functioning. Reviewed vital signs,~Labs/ Radiology~and current medications noted below. Continue current treatment with the changes noted in the dictated addendum note Assessment: Vital Signs/I&O: Vital Signs Date Time Temp Pulse Resp B/P (MAP) Pulse Ox O2 Delivery O2 Flow Rate FiO2 05/28/19 15:40 97.8 89 16 125/73 (90) 98 05/27/19 05:43 Room Air I & O 05/27/19 05/27/19 05/28/19 14:59 22:59 06:59 Intake Total 720 ml 460 ml Balance 720 ml 460 ml Current Medications: I have reviewed the current psychotropics carefully including drug interactions. Risk benefit ratio favors no change other than as noted in my dictated progress note. Diagnosis: Problems: (1) Anxiety disorder (2) Bipolar affective, mixed (3) Mild cognitive impairment (4) Obsessive compulsive disorder (5) Schizoaffective disorder, bipolar type (6) Altered mental status IAN SANCHEZ MD May 28, 2019 22:26
[2019-05-29 04:16] VITALS: BP 144/81
[2019-05-29] MEDS: DIVALPROEX 125 MG CAP.SPRINK PO SCH ×2 (10:35→17:19)
[2019-05-29] MEDS: LACTOBACILLUS RHAMNOSUS GG 1 CAPSULE. PO SCH ×2 (10:35→19:30)
[2019-05-29] MEDS: CLOBETASOL EMOLLIENT 0.05% TOPICAL CREAM 15GM TUBE. TP SCH ×2 (10:38→19:32)
[2019-05-29 15:47] VITALS: BP 117/71
[2019-05-29] MEDS: risperiDONE 0.5 MG TABLET. PO SCH (19:30)
[2019-05-29] MEDS: traZODone 50 MG TABLET. PO SCH (19:30)
--- NOTE | 2019-05-29 22:19 | PN ---
DATE: 05/28/2019 PSYCHIATRIC PROGRESS NOTE. This late entry of 05/28/2019 covers the elements not covered in my initial note of 05/28/2019. SUBJECTIVE: I met with the patient in the evening in her room. The patient slept 7-1/2 hours previous night. Per nursing reports, she remains somewhat hyperverbal, anxious, distractible, but less so than before. REVIEW OF SYSTEMS: No CV, , pulmonary, eye, ENT system symptoms on review. MENTAL STATUS EXAM: Oriented to herself and situation. Speech coherent, rapid at times, less so than before. Abstraction fair, computation impaired, language function intact, attention span short. Mood and affect somewhat anxious, labile. LABORATORY DATA: Reviewed. IMPRESSION: Unchanged from initial note. PLAN: No change from initial note. Continue Depakote since the level is therapeutic at 51, together with trazodone and Risperdal. IAN SANCHEZ MD DR: LEOBARDO/immanuel JOB#: [id number] / [id number]
--- NOTE | 2019-05-29 22:25 | PDOC ---
Exam Note: Harpreet Note: Please also refer to the separate dictated note~for this date of service dictated separately.~Patient seen individually. Discussed the patient with Nursing staff reviewed the chart.~Reviewed interim history and current functioning. Reviewed vital signs,~Labs/ Radiology~and current medications noted below. Continue current treatment with the changes noted in the dictated addendum note Assessment: Vital Signs/I&O: Vital Signs Date Time Temp Pulse Resp B/P (MAP) Pulse Ox O2 Delivery O2 Flow Rate FiO2 05/29/19 15:47 98.6 93 18 117/71 (86) 95 05/29/19 04:16 Room Air I & O 05/28/19 05/28/19 05/29/19 15:00 23:00 07:00 Intake Total 720 ml 580 ml Balance 720 ml 580 ml Current Medications: I have reviewed the current psychotropics carefully including drug interactions. Risk benefit ratio favors no change other than as noted in my dictated progress note. Diagnosis: Problems: (1) Anxiety disorder (2) Bipolar affective, mixed (3) Mild cognitive impairment (4) Obsessive compulsive disorder (5) Schizoaffective disorder, bipolar type (6) Altered mental status IAN SANCHEZ MD May 29, 2019 22:25
[2019-05-30 05:38] VITALS: BP 129/69
[2019-05-30] MEDS: CLOBETASOL EMOLLIENT 0.05% TOPICAL CREAM 15GM TUBE. TP SCH ×2 (08:26→21:45)
[2019-05-30] MEDS: LACTOBACILLUS RHAMNOSUS GG 1 CAPSULE. PO SCH ×2 (08:26→19:04)
[2019-05-30] MEDS: DIVALPROEX 125 MG CAP.SPRINK PO SCH ×2 (08:26→16:38)
[2019-05-30 15:37] VITALS: BP 121/71
[2019-05-30] MEDS: risperiDONE 0.5 MG TABLET. PO SCH (19:04)
[2019-05-30] MEDS: traZODone 50 MG TABLET. PO SCH (19:04)
--- NOTE | 2019-05-30 20:48 | PDOC ---
Exam Note: Harpreet Note: Please also refer to the separate dictated note~for this date of service dictated separately.~Patient seen individually. Discussed the patient with Nursing staff reviewed the chart.~Reviewed interim history and current functioning. Reviewed vital signs,~Labs/ Radiology~and current medications noted below. Continue current treatment with the changes noted in the dictated addendum note Assessment: Vital Signs/I&O: Vital Signs Date Time Temp Pulse Resp B/P (MAP) Pulse Ox O2 Delivery O2 Flow Rate FiO2 05/30/19 15:37 97.0 90 18 121/71 (88) 95 05/30/19 05:38 Room Air I & O 05/29/19 05/29/19 05/30/19 15:00 23:00 07:00 Intake Total 720 ml 340 ml Balance 720 ml 340 ml Current Medications: I have reviewed the current psychotropics carefully including drug interactions. Risk benefit ratio favors no change other than as noted in my dictated progress note. Diagnosis: Problems: (1) Anxiety disorder (2) Bipolar affective, mixed (3) Mild cognitive impairment (4) Obsessive compulsive disorder (5) Schizoaffective disorder, bipolar type (6) Altered mental status IAN SANCHEZ MD May 30, 2019 20:48
--- NOTE | 2019-05-30 22:54 | PN ---
DATE: 05/29/2019 PSYCHIATRIC PROGRESS NOTE This late entry 05/29/2019 covers elements not covered in my initial note. SUBJECTIVE: I met with the patient in the evening of 05/29/2019 at some length in her room. She slept 6 hours previous night. Appears less hyperverbal, somewhat obsessive about how she will get back to [place]. Addressed this with her. REVIEW OF SYSTEMS: No CV, , pulmonary, eye, ENT system symptoms on review. Reliability varies. MENTAL STATUS EXAM: Oriented to herself and situation. Speech coherent, less pressured. Abstraction fair, computation impaired, language function intact, attention span short. She looks away frequently during the conversation with her individually. LABORATORY DATA: Reviewed. IMPRESSION: Unchanged from initial note. PLAN: No change from initial note. Valproic acid level therapeutic at 51. Continue Risperdal, Depakote, trazodone at current dosage. MAN Isidra SANCHEZ MD DR: LEOBARDO/immanuel JOB#: [id number] / [id number]
[2019-05-31 06:06] VITALS: BP 135/80
[2019-05-31 08:00] LABS: ALBUMIN 3.5 g/dL (3.4-5.0); CALCIUM 8.7 mg/dL (8.5-10.1); CREATININE 0.6 mg/dL (0.6-1.0); GFR 99.7; POTASSIUM 3.8 mmol/L (3.5-5.1); TOTAL BILIRUBIN 0.4 mg/dL (0.2-1.0)
[2019-05-31 08:08] LABS: BASO % 1 % (0-3); EOS % 1 % (0-3); HEMATOCRIT 41.1 % (36.0-47.0); HEMOGLOBIN 13.4 g/dL (12.0-15.5); LYMPH # 0.7 x10^3/uL (1.0-4.8); LYMPH % 18 % (24-48); MEAN CORPUSCULAR HEMOGLOBIN 30 pg (25-35); MEAN CORPUSCULAR HGB CONC 33 g/dL (31-37); MEAN CORPUSCULAR VOLUME 93 fL (79-100); MONO # 0.5 x10^3/uL (0.0-1.1); MONO % 13 % (0-9); NEUT # 2.8 x10^3uL (1.8-7.7); NEUT % 68 % (31-73); PLATELET COUNT 346 x10^3/uL (140-400); RED BLOOD COUNT 4.43 x10^6/uL (3.50-5.40); RED CELL DISTRIBUTION WIDTH 14.3 % (11.5-14.5); WHITE BLOOD COUNT 4.1 x10^3/uL (4.0-11.0)
[2019-05-31] MEDS: CLOBETASOL EMOLLIENT 0.05% TOPICAL CREAM 15GM TUBE. TP SCH ×2 (09:23→19:47)
[2019-05-31] MEDS: DIVALPROEX 125 MG CAP.SPRINK PO SCH ×2 (09:23→17:39)
[2019-05-31] MEDS: LACTOBACILLUS RHAMNOSUS GG 1 CAPSULE. PO SCH ×2 (09:23→19:47)
[2019-05-31 16:02] VITALS: BP 123/63
[2019-05-31] MEDS: risperiDONE 0.5 MG TABLET. PO SCH (19:47)
[2019-05-31] MEDS: traZODone 50 MG TABLET. PO SCH (19:47)
--- NOTE | 2019-05-31 22:19 | PDOC ---
Exam Note: Harpreet Note: Please also refer to the separate dictated note~for this date of service dictated separately.~Patient seen individually. Discussed the patient with Nursing staff reviewed the chart.~Reviewed interim history and current functioning. Reviewed vital signs,~Labs/ Radiology~and current medications noted below. Continue current treatment with the changes noted in the dictated addendum note Assessment: Vital Signs/I&O: Vital Signs Date Time Temp Pulse Resp B/P (MAP) Pulse Ox O2 Delivery O2 Flow Rate FiO2 05/31/19 16:02 97.5 81 18 123/63 (83) 99 05/31/19 06:06 Room Air I & O 05/30/19 05/30/19 05/31/19 15:00 23:00 07:00 Intake Total 960 ml 460 ml Balance 960 ml 460 ml Labs: Laboratory Tests Test 05/31/19 07:24 White Blood Count 4.1 x10^3/uL (4.0-11.0) Red Blood Count 4.43 x10^6/uL (3.50-5.40) Hemoglobin 13.4 g/dL (12.0-15.5) Hematocrit 41.1 % (36.0-47.0) Mean Corpuscular Volume 93 fL (79-100) Mean Corpuscular Hemoglobin 30 pg (25-35) Mean Corpuscular Hemoglobin Concent 33 g/dL (31-37) Red Cell Distribution Width 14.3 % (11.5-14.5) Platelet Count 346 x10^3/uL (140-400) Neutrophils (%) (Auto) 68 % (31-73) Lymphocytes (%) (Auto) 18 % (24-48) L Monocytes (%) (Auto) 13 % (0-9) H Eosinophils (%) (Auto) 1 % (0-3) Basophils (%) (Auto) 1 % (0-3) Neutrophils # (Auto) 2.8 x10^3uL (1.8-7.7) Lymphocytes # (Auto) 0.7 x10^3/uL (1.0-4.8) L Monocytes # (Auto) 0.5 x10^3/uL (0.0-1.1) Eosinophils # (Auto) 0.0 x10^3/uL (0.0-0.7) Basophils # (Auto) 0.0 x10^3/uL (0.0-0.2) Sodium Level 142 mmol/L (136-145) Potassium Level 3.8 mmol/L (3.5-5.1) Chloride Level 106 mmol/L (98-107) Carbon Dioxide Level 31 mmol/L (21-32) Anion Gap 5 (6-14) L Blood Urea Nitrogen 18 mg/dL (7-20) Creatinine 0.6 mg/dL (0.6-1.0) Estimated GFR (Cockcroft-Gault) 99.7 BUN/Creatinine Ratio 30 (6-20) H Glucose Level 97 mg/dL (70-99) Calcium Level 8.7 mg/dL (8.5-10.1) Total Bilirubin 0.4 mg/dL (0.2-1.0) Aspartate Amino Transferase (AST) 14 U/L (15-37) L Alanine Aminotransferase (ALT) 25 U/L (14-59) Alkaline Phosphatase 52 U/L (46-116) Total Protein 7.0 g/dL (6.4-8.2) Albumin 3.5 g/dL (3.4-5.0) Albumin/Globulin Ratio 1.0 (1.0-1.7) Current Medications: I have reviewed the current psychotropics carefully including drug interactions. Risk benefit ratio favors no change other than as noted in my dictated progress note. Diagnosis: Problems: (1) Anxiety disorder (2) Bipolar affective, mixed (3) Mild cognitive impairment (4) Obsessive compulsive disorder (5) Schizoaffective disorder, bipolar type (6) Psoriasis (7) Altered mental status IAN SANCHEZ MD May 31, 2019 22:19
[2019-06-01 05:52] VITALS: BP 150/73
[2019-06-01] MEDS: LACTOBACILLUS RHAMNOSUS GG 1 CAPSULE. PO SCH ×2 (07:52→19:39)
[2019-06-01] MEDS: DIVALPROEX 125 MG CAP.SPRINK PO SCH ×2 (07:52→16:17)
[2019-06-01] MEDS: CLOBETASOL EMOLLIENT 0.05% TOPICAL CREAM 15GM TUBE. TP SCH ×2 (07:53→19:40)
[2019-06-01 15:51] VITALS: BP 144/74
[2019-06-01] MEDS: risperiDONE 0.5 MG TABLET. PO SCH (19:39)
[2019-06-01] MEDS: traZODone 50 MG TABLET. PO SCH (19:39)
--- NOTE | 2019-06-01 22:00 | PN ---
DATE: 05/30/2019 PSYCHIATRIC PROGRESS NOTE This is a late entry 05/30/2019, covers the elements not covered in my initial note. SUBJECTIVE: I met with the patient in the evening of 05/30/2019. The patient slept 5-3/4 hours previous night. She has done well previous night and during the day. She remains somewhat hyperverbal, distractible, but this is typical for her. I met with her in her room. REVIEW OF SYSTEMS: No CV, , pulmonary, eye, ENT system symptoms on review. Reliability varies. MENTAL STATUS EXAM: Oriented to herself and situation. Speech coherent, rapid at times, less hyper-yazidism. Abstraction fair, computation impaired, language function intact, attention span short. Mood and affect remain somewhat anxious, labile, but improved. LABORATORY DATA: Reviewed. IMPRESSION: Unchanged from initial note. PLAN: No change from initial note. MAN Isidra SANCHEZ MD DR: LEOBARDO/immanuel JOB#: [id number] / [id number]
--- NOTE | 2019-06-01 22:08 | PDOC ---
Exam Note: Harpreet Note: Please also refer to the separate dictated note~for this date of service dictated separately.~Patient seen individually. Discussed the patient with Nursing staff reviewed the chart.~Reviewed interim history and current functioning. Reviewed vital signs,~Labs/ Radiology~and current medications noted below. Continue current treatment with the changes noted in the dictated addendum note Assessment: Vital Signs/I&O: Vital Signs Date Time Temp Pulse Resp B/P (MAP) Pulse Ox O2 Delivery O2 Flow Rate FiO2 06/01/19 15:51 97.4 95 20 144/74 (97) 97 Room Air I & O 05/31/19 05/31/19 06/01/19 14:59 22:59 06:59 Intake Total 720 ml 360 ml Balance 720 ml 360 ml Current Medications: I have reviewed the current psychotropics carefully including drug interactions. Risk benefit ratio favors no change other than as noted in my dictated progress note. Diagnosis: Problems: (1) Anxiety disorder (2) Bipolar affective, mixed (3) Mild cognitive impairment (4) Obsessive compulsive disorder (5) Schizoaffective disorder, bipolar type (6) Psoriasis (7) Altered mental status IAN SANCHEZ MD Jun 01, 2019 22:08
--- NOTE | 2019-06-01 23:10 | PN ---
DATE: 05/31/2019 PSYCHIATRIC PROGRESS NOTE This late entry, 05/31/2019, covers elements not covered in my initial note. SUBJECTIVE: I met with the patient in the evening of 05/31/2019. The patient slept 6-1/2 hours previous night. Appetite 75-100%. She remains somewhat hyperverbal, less so than before, less hyper-moravian. She was making statements to nursing staff that she could not take a shower because she had to attend a meeting, quite distractible. REVIEW OF SYSTEMS: No CV, , pulmonary, eye system symptoms on review. MENTAL STATUS EXAM: Oriented to herself and situation. Speech is coherent, pressured, but less so than before. Abstraction fair, computation impaired, language function intact, attention span short. Mood and affect remains labile, less grandiose, better than before. LABORATORY DATA: Reviewed. IMPRESSION: Unchanged from initial note. PLAN: No change from initial note. She is being screened for transition to [facility]. IAN SANCHEZ MD DR: LEOBARDO/immanuel JOB#: [id number] / [id number]
[2019-06-02 06:20] VITALS: BP 145/79
[2019-06-02] MEDS: LACTOBACILLUS RHAMNOSUS GG 1 CAPSULE. PO SCH ×2 (08:18→19:36)
[2019-06-02] MEDS: CLOBETASOL EMOLLIENT 0.05% TOPICAL CREAM 15GM TUBE. TP SCH ×2 (08:19→19:36)
[2019-06-02] MEDS: DIVALPROEX 125 MG CAP.SPRINK PO SCH ×2 (08:19→17:01)
[2019-06-02 16:26] VITALS: BP 142/80
[2019-06-02] MEDS: risperiDONE 0.5 MG TABLET. PO SCH (19:36)
[2019-06-02] MEDS: traZODone 50 MG TABLET. PO SCH (19:36)
--- NOTE | 2019-06-02 23:04 | PDOC ---
Exam Note: Harpreet Note: Please also refer to the separate dictated note~for this date of service dictated separately.~Patient seen individually. Discussed the patient with Nursing staff reviewed the chart.~Reviewed interim history and current functioning. Reviewed vital signs,~Labs/ Radiology~and current medications noted below. Continue current treatment with the changes noted in the dictated addendum note Assessment: Vital Signs/I&O: Vital Signs Date Time Temp Pulse Resp B/P (MAP) Pulse Ox O2 Delivery O2 Flow Rate FiO2 06/02/19 16:26 97.6 101 18 142/80 (100) 97 06/02/19 06:20 Room Air I & O 06/01/19 06/01/19 06/02/19 15:00 23:00 07:00 Intake Total 1200 ml 360 ml Balance 1200 ml 360 ml Current Medications: I have reviewed the current psychotropics carefully including drug interactions. Risk benefit ratio favors no change other than as noted in my dictated progress note. Diagnosis: Problems: (1) Anxiety disorder (2) Bipolar affective, mixed (3) Mild cognitive impairment (4) Obsessive compulsive disorder (5) Schizoaffective disorder, bipolar type (6) Psoriasis (7) Altered mental status IAN SANCHEZ MD Jun 02, 2019 23:04
[2019-06-03 05:48] VITALS: BP 149/80
[2019-06-03] MEDS: CLOBETASOL EMOLLIENT 0.05% TOPICAL CREAM 15GM TUBE. TP SCH ×2 (08:12→20:12)
[2019-06-03] MEDS: DIVALPROEX 125 MG CAP.SPRINK PO SCH ×2 (08:12→16:58)
[2019-06-03] MEDS: LACTOBACILLUS RHAMNOSUS GG 1 CAPSULE. PO SCH ×2 (08:12→20:12)
[2019-06-03 16:20] VITALS: BP 120/67
[2019-06-03] MEDS: risperiDONE 0.5 MG TABLET. PO SCH (20:12)
[2019-06-03] MEDS: traZODone 50 MG TABLET. PO SCH (20:12)
--- NOTE | 2019-06-03 22:23 | PDOC ---
Exam Note: Harpreet Note: Please also refer to the separate dictated note~for this date of service dictated separately.~Patient seen individually. Discussed the patient with Nursing staff reviewed the chart.~Reviewed interim history and current functioning. Reviewed vital signs,~Labs/ Radiology~and current medications noted below. Continue current treatment with the changes noted in the dictated addendum note Assessment: Vital Signs/I&O: Vital Signs Date Time Temp Pulse Resp B/P (MAP) Pulse Ox O2 Delivery O2 Flow Rate FiO2 06/03/19 16:20 98.0 88 20 120/67 (84) 96 06/03/19 05:48 Room Air I & O 06/02/19 06/02/19 06/03/19 15:00 23:00 07:00 Intake Total 600 ml 240 ml Balance 600 ml 240 ml Current Medications: I have reviewed the current psychotropics carefully including drug interactions. Risk benefit ratio favors no change other than as noted in my dictated progress note. Diagnosis: Problems: (1) Anxiety disorder (2) Bipolar affective, mixed (3) Mild cognitive impairment (4) Obsessive compulsive disorder (5) Schizoaffective disorder, bipolar type (6) Altered mental status IAN SANCHEZ MD Jun 03, 2019 22:23
--- NOTE | 2019-06-03 22:35 | PN ---
DATE: 06/03/2019 PSYCHIATRIC PROGRESS NOTE This is a late entry 06/01/2019 covers elements not covered in my initial note. SUBJECTIVE: I met with the patient in her room in the evening of 06/01/2019. The patient slept 7-1/2 hours previous night. She has been out more in activities. Per nursing report, pleasant, interactive, but still hyperverbal, distractible. REVIEW OF SYSTEMS: No CV, , pulmonary, eye, ENT system symptoms on review. Reliability varies. MENTAL STATUS EXAM: Oriented to herself and situation. Speech coherent, rapid at times. Abstraction fair, computation impaired, language function intact. Mood and affect somewhat labile, but improved. No suicidal or homicidal ideation. LABORATORY DATA: Reviewed. IMPRESSION: Unchanged from initial note. PLAN: No change from initial note. MAN Isidra SANCHEZ MD DR: LEOBARDO/immanuel JOB#: [id number] / [id number]
[2019-06-04] MEDS ORDERED: ACET325T9 PO (01:38)
[2019-06-04] MEDS ORDERED: DIVA125C2 PO (01:40)
[2019-06-04] MEDS ORDERED: CLOB15CR2 TP (01:40)
[2019-06-04] MEDS ORDERED: LACT1CAP21 PO (01:41)
[2019-06-04] MEDS ORDERED: MAG355OR12 PO (01:42)
[2019-06-04] MEDS ORDERED: MAGN2400 PO (01:43)
[2019-06-04] MEDS ORDERED: METH29OI TP (01:44)
[2019-06-04] MEDS ORDERED: POLY15DR27 OU (01:45)
[2019-06-04] MEDS ORDERED: RISP0.5T3 PO (01:45)
[2019-06-04] MEDS ORDERED: TRAZ-120 PO ×2 (01:46)
[2019-06-04 05:36] VITALS: BP 168/71
[2019-06-04] MEDS: DIVALPROEX 125 MG CAP.SPRINK PO SCH (07:48)
[2019-06-04] MEDS: LACTOBACILLUS RHAMNOSUS GG 1 CAPSULE. PO SCH (07:48)
[2019-06-04] MEDS: CLOBETASOL EMOLLIENT 0.05% TOPICAL CREAM 15GM TUBE. TP SCH (07:49)
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
--- NOTE | 2019-06-04 18:21 | PDOC ---
Exam Note: Harpreet Note: Please also refer to the separate dictated note~for this date of service dictated separately.~Patient seen individually. Discussed the patient with Nursing staff reviewed the chart.~Reviewed interim history and current functioning. Reviewed vital signs,~Labs/ Radiology~and current medications noted below. Continue current treatment with the changes noted in the dictated addendum note Assessment: Vital Signs/I&O: Vital Signs Date Time Temp Pulse Resp B/P (MAP) Pulse Ox O2 Delivery O2 Flow Rate FiO2 06/04/19 05:36 97.2 99 18 168/71 (103) 95 06/03/19 05:48 Room Air I & O 06/03/19 06/03/19 06/04/19 15:00 23:00 07:00 Intake Total 520 ml 480 ml Balance 520 ml 480 ml Current Medications: I have reviewed the current psychotropics carefully including drug interactions. Risk benefit ratio favors no change other than as noted in my dictated progress note. Diagnosis: Problems: (1) Altered mental status (2) Schizoaffective disorder, bipolar type (3) Obsessive compulsive disorder (4) Anxiety disorder (5) Bipolar affective, mixed IAN SANCHEZ MD Jun 04, 2019 18:21
--- NOTE | 2019-06-04 22:18 | PN ---
DATE: 06/02/2019 PSYCHIATRIC PROGRESS NOTE. This late entry of 06/02/2019 covers the elements not covered in my initial note. SUBJECTIVE: I met with the patient in the evening of 06/02/2019. The patient slept 5-1/2 hours previous night. Overall, the patient remains somewhat hyperverbal, distractible, but less so than before. REVIEW OF SYSTEMS: No CV, , pulmonary, eye, ENT system symptoms on review. MENTAL STATUS EXAM: Oriented to herself and situation. Speech coherent, rapid at times, less so than before. Abstraction fair, computation impaired, language function intact, attention span short. Mood and affect remain somewhat anxious, labile, but less so than before. LABORATORY DATA: Reviewed. IMPRESSION: Unchanged from initial note. PLAN: No change from initial note. MAN Isidra SANCHEZ MD DR: LEOBARDO/immanuel JOB#: [id number] / [id number]
--- NOTE | 2019-06-04 22:34 | PN ---
DATE: 06/03/2019 PSYCHIATRIC PROGRESS NOTE This late entry 06/03/2019 covers elements not covered in my initial note. SUBJECTIVE: I met with the patient in the evening of 06/03/2019. The patient slept 7-1/4 hours previous night. The patient remains somewhat hyperverbal, distractible, but improved. REVIEW OF SYSTEMS: No CV, , pulmonary, eye, ENT system symptoms on review. MENTAL STATUS EXAM: Oriented to herself and situation. Speech is coherent, little pressured. Abstraction fair, computation impaired, language function intact. Mood and affect is improved. LABORATORY DATA: Reviewed. IMPRESSION: Unchanged from initial note. PLAN: No change from initial note. IAN SANCHEZ MD DR: LEOBARDO/immanuel JOB#: [id number] / [id number]
== END 2019-06-04 10:34 | DRG 885 ==
LOC: GEROPSY 21:20
PROVIDERS: ADMIT Psychiatry & Neurology Psychiatry; ATTEND Psychiatry & Neurology Psychiatry
DX: F25.0 Schizoaffective disorder, bipolar type (principal); F41.9 Anxiety disorder, unspecified; F63.9 Impulse disorder, unspecified; F42.9 Obsessive-compulsive disorder, unspecified; F03.90 Unspecified dementia, unspecified severity, without behavioral disturbance, psychotic disturbance, mood disturbance, and anxiety; L40.9 Psoriasis, unspecified; F14.10 Cocaine abuse, uncomplicated; F60.9 Personality disorder, unspecified; Z91.14 Patient's other noncompliance with medication regimen; Z79.899 Other long term (current) drug therapy
CPT/HCPCS: 36415; 70450; 80053; 80061; 80164; 81003; 82306; 83036; 83540; 83550; 83735; 84436; 84443; 84480; 85025; 85027; 86592; 87086